=== PATIENT | female | born 1960 | race Caucasian/White ===

== ENCOUNTER → 2020-01-13 09:49 | Outpatient (CLI) | payer BC, SELFPAY ==
--- NOTE | ~2020-01-13 | MM_ITS ---
EXAMINATION: MM screening [facility] BI w jill HISTORY: Screening mammogram TECHNIQUE: Craniocaudal and mediolateral oblique 3-D tomosynthesis images were obtained and synthetic 2-D images were generated. CAD analysis was submitted and interpreted. COMPARISON: 12/06/2018, 09/02/2017, 08/13/2016 BREAST PARENCHYMAL COMPOSITION: There are scattered areas of fibroglandular density. FINDINGS: There is no evidence of suspicious mass, calcification, or architectural distortion to sugg est malignancy in either breast. There has been no suspicious interval change. IMPRESSION: 1. No mammographic evidence of malignancy. 2. Recommend routine screening mammography in one year. BI-RADS Category 1: Negative Reviewed, dictated and finalized at location A.
== END ==
PROVIDERS: PCP Family Medicine; Visit Provider Physician Assistant
DX: Z12.31 Encounter for screening mammogram for malignant neoplasm of breast (principal)
CPT/HCPCS: 77063; 77067

== ENCOUNTER → 2021-05-19 11:25 | Outpatient (CLI) | payer OTHER, SELFPAY ==
--- NOTE | ~2021-05-19 | MM_ITS ---
EXAMINATION: MM screening [facility] BI w jill HISTORY: Screening mammogram TECHNIQUE: Craniocaudal and mediolateral oblique 3-D tomosynthesis images were obtained and synthetic 2-D images were generated. CAD analysis was submitted and interpreted. COMPARISON: 01/13/2020, 12/06/2018, 09/02/2017 BREAST PARENCHYMAL COMPOSITION: There are scattered areas of fibroglandular density. FINDINGS: There is no evidence of suspicious mass, calcification, or architectural distortion to sugg est malignancy in either breast. There has been no suspicious interval change. IMPRESSION: 1. No mammographic evidence of malignancy. 2. Recommend routine screening mammography in one year. BI-RADS Category 1: Negative Reviewed, dictated and finalized at location A.
== END ==
PROVIDERS: PCP Family Medicine; Visit Provider Family Medicine
DX: Z12.31 Encounter for screening mammogram for malignant neoplasm of breast (principal)
CPT/HCPCS: 77063; 77067

== ENCOUNTER → 2021-12-30 16:27 | Outpatient (CLI) | payer OTHER, SELFPAY ==
--- NOTE | ~2021-12-30 | XR_ITS ---
EXAMINATION: XR knee LT 3V DATE: 12/30/2021 17:04 INDICATION: Left knee pain TECHNIQUE: Three views of the left knee were obtained. COMPARISON: None. FINDINGS: Alignment is normal. No fracture or osteochondral lesion. There is mild tricompartmental os teoarthritis characterized by tiny marginal osteophytes. No joint effusion/synovitis. Soft tissues a re unremarkable. IMPRESSION: 1. No acute osseous abnormality. Reviewed, dictated and finalized at location A. ICIAN COMPENSATION ANALYST
--- NOTE | ~2021-12-30 | XR_ITS ---
EXAMINATION: XR hip LT min 2V INDICATION: Left hip pain TECHNIQUE: Two views of the left hip are obtained. COMPARISON: None available FINDINGS: Bone alignment is normal. There is no fracture. The soft tissues are normal. IMPRESSION: 1. No acute osseous abnormality. Reviewed, dictated and finalized at location A. [employer]
--- NOTE | ~2021-12-30 | XR_ITS ---
EXAMINATION: XR ribs LT 2V w CXR 2V INDICATION: Left rib pain TECHNIQUE: A frontal view of the chest and 3 views of the left ribs were obtained. COMPARISON: None. FINDINGS: There is mild atelectasis. No pleural effusion or pneumothorax is identified. The cardiomed iastinal silhouette is normal. No displaced rib fracture is identified. IMPRESSION: 1. Mild atelectasis of the lung bases. 2. No displaced rib fracture identified. Reviewed, dictated and finalized at location A. REMOVER
== END ==
PROVIDERS: PCP Family Medicine; Visit Provider Family Medicine
DX: M25.559 Pain in unspecified hip (principal); R07.81 Pleurodynia; M25.569 Pain in unspecified knee; R91.8 Other nonspecific abnormal finding of lung field
CPT/HCPCS: 71046; 71100; 73502; 73562

== ENCOUNTER → 2022-02-02 11:04 | Outpatient (CLI) | payer OTHER, SELFPAY ==
--- NOTE | ~2022-02-02 | DEXA_ITS ---
Bone Density Report Name: CHERRY COATS Age: 61 Sex: Female Ethnicity: White Date of : 1960 Indication: postmenopausal; screening for osteoporosis; height loss; Referring Provider: SANDRA LONG Study: Bone densitometry was performed. Exam Date: February 02, 2022 Accession number: [id number] Bone Density: Region BMD T-score Z-score Classification AP Spine (L1-L4) 1.175 1.2 2.7 Normal Femoral Neck (Left) 1.038 1.7 3.0 Normal Total Hip (Left) 1.237 2.4 3.4 Normal Femoral Neck (Right) 1.048 1.8 3.1 Normal Total Hip (Right) 1.216 2.2 3.3 Normal Total Hip Mean 1.227 2.3 3.4 Normal World Health Organization criteria for BMD impression classify patients as: Normal (T-score at or above -1.0), Osteopenia (T-score between -1.0 and -2.5), or Osteoporosis (T-score at or below -2.5). 10-year Fracture Risk: FRAX not reported because: All T-scores for Spine Total, Hip Total, Femoral Neck at or above -1.0 Clinical Information Provided by Patient: Has used the following medications: Vitamin D, LEVOTHYROXINE Patient maximum height was 66.0 Menopause Age: 49 Drinks caffeinated beverages Onset of menses at age 12 Number of children 0 Impression: The patient has normal bone mass. Discussion: LOW RISK OF FRACTURE; BONE DENSITY IS WELL ABOVE THE MINIMUM DESIRABLE LEVEL AND ABOVE AVERAGE FOR AGE AND SEX AT ALL SKELETAL SITES TESTED. This person's bone density is above expected limits for age and sex. This is rarely clinically significant, but should be pursued if there are significant musculoskeletal complaints. The patient should follow a healthful lifestyle (good nutrition with adequate calcium and vitamin D, and appropriate weight-bearing exercise). Follow-Up: Consider repeating this study in 5 years or sooner if there is some new clinical indication. Reported by: [facility] on 02/02/2022 11:45:00 AM. Reviewed, dictated and finalized at location ASinan VALLECILLO
== END ==
PROVIDERS: Visit Provider Family Medicine
DX: Z78.0 Asymptomatic menopausal state (principal)
CPT/HCPCS: 77080

== ENCOUNTER 2022-11-09 14:21 | Emergency (ER) | payer OTHER, SELFPAY ==
[2022-11-09 16:00] VITALS: BP 153/89; PULSE 77; RESP 14; TEMP 36.2; O2SAT 100
--- NOTE | 2022-11-09 16:12 | ED.URI ---
HPI - URI/Sore Throat General Chief Complaint: Upper Respiratory Infection Stated Complaint: Cough/Wheezing Time Seen by Provider: 11/09/22 16:12 Source: patient, RN notes reviewed and old records reviewed Mode of arrival: ambulatory Limitations: no limitations History of Present Illness HPI Narrative: 61 year presents to the [facility] with complaints of cough, wheezing for 2 weeks. Had COVID a couple months ago and states she got over but for the last 2 weeks has increased cough, wheezing without chest pain or shortness of breath. States that she has been through multiple packages of Mucinex with minimal relief. Per medical record has been treated with cefdinir in the past. Patient denies any issues with that medication. Related Data Home Medications Medication Instructions Recorded Confirmed cetirizine 10 mg tablet (Zyrtec) 10 mg PO DAILY 11/23/19 11/09/22 Allergies Allergy/AdvReac Type Severity Reaction Status Date / Time erythromycin base Allergy Intermediate Other Verified 11/09/22 16:13 bee pollen Allergy Unknown Unknown Verified 11/09/22 15:53 chocolate flavor Allergy Unknown Unknown Verified 11/09/22 15:53 Penicillins Allergy Unknown Unknown Verified 11/09/22 15:53 pepper (genus Capsicum) Allergy Unknown Unknown Verified 11/09/22 15:53 tetracycline Allergy Unknown Unknown Verified 11/09/22 15:53 Review of Systems Review of Systems: All systems reviewed & are unremarkable except as noted in HPI and below Constitutional: Constitutional: Reports no additional constitutional complaints Eyes: Eyes: Reports no additional eye complaints ENT: Reports system reviewed and no additional complaints, except as documented Cardiovascular: Cardiovascular: Reports no additional cardiovascular complaints, Denies chest pain and Denies dyspnea Respiratory: Respiratory: Reports as per HPI, Denies chest congestion, Reports cough, Denies dyspnea and Reports wheezing Gastrointestinal: Gastrointestinal: Reports no additional gastrointestinal complaints, Denies abdominal pain, Denies nausea and Denies vomiting Musculoskeletal: Musculoskeletal: Reports no additional musculoskeletal complaints Integumentary/Breasts: Skin/Breast: Reports system reviewed and no additional complaints, except as docu Neurologic: Reports system reviewed and no additional complaints, except as documented Psychiatric: Psychiatric: Reports no additional psychiatric complaints Allergic/Immunologic: Allergic/Immunologic: Reports no additional allergic/immunologic complaints PMFSH Past Medical History Medical History Calcaneal spur of right foot Chronic renal insufficiency, stage II (mild) Colon cancer screening (~2019) negative cologuard HLD (hyperlipidemia) Hypertension Hypothyroidism Surgical History Surgical History Hx of tonsillectomy Family History Family History Father Hypertension Grandparent Hypertension Mother Hypertension Sibling Hypertension Family history of elevated blood lipids Social History Social History Smoking status: Never smoker Second hand tobacco smoke exposure: No Alcohol intake: never Substance use: never Substance use type: does not use Comments At the time of my signature, I reviewed and agree with the nursing past medical, surgical, social, and family history. There is no relevant family history pertinent to the patient complaint. Exam Const: General: cooperative, healthy appearing, comfortable, no acute distress, well developed, alert and well nourished Nutritional Appearance: well nourished and obese Orientation/consciousness: patient oriented x3 Limitations: no limitations HENMT: Head: normal to inspection Ears: hearing grossly normal bilaterally and external ears nor
== END 2022-11-09 16:32 | disposition home or self-care (01) ==
PROVIDERS: Emergency Provider Nurse Practitioner; PCP Family Medicine
DX: J40 Bronchitis, not specified as acute or chronic (principal); I12.9 Hypertensive chronic kidney disease with stage 1 through stage 4 chronic kidney disease, or unspecified chronic kidney disease; N18.2 Chronic kidney disease, stage 2 (mild); E78.5 Hyperlipidemia, unspecified; E03.9 Hypothyroidism, unspecified; Z86.16 Personal history of COVID-19
CPT/HCPCS: 99213; G0463

== ENCOUNTER 2023-03-03 08:36 | Emergency (ER) | payer OTHER, SELFPAY ==
--- NOTE | ~2023-03-03 | CT_ITS ---
EXAMINATION: CT brain wo con INDICATION: Head injury COMPARISON: None TECHNIQUE: Standard unenhanced head CT. The dose-length product (DLP) was 605.33 mGy-cm. The mA was a djusted according to patient size. Iterative reconstruction technique was employed. FINDINGS: There is no intracranial hemorrhage, acute infarction, or abnormal mass lesion. The ventric les are normal. There is no abnormal mass effect or midline shift. The thomson-white matter differentiat ion is normal. The basal cisterns are patent. The orbits are normal. There is mild mucosal thickening of the paranasal sinuses. IMPRESSION: 1. No acute intracranial abnormality. Reviewed, dictated and finalized at location B.
--- NOTE | ~2023-03-03 | CT_ITS ---
EXAMINATION: CT facial & cervical spine wo DATE: 03/03/2023 09:50 INDICATION: Head injury TECHNIQUE: Computed tomography (CT) of the maxillofacial region and cervical spine was performed with out intravenous contrast. The dose-length product (DLP) was 429.26 mGy-cm. Automated exposure control and iterative reconstruction technique were employed. COMPARISON: None FINDINGS: MAXILLOFACIAL CT: There is minimal opacification of the ethmoidal air cells and right maxillary sinus. No facial fractu re is identified. The globes and orbits are normal. The soft tissues are unremarkable. CERVICAL SPINE CT: Bone alignment is normal. There is no fracture. The vertebral body heights are normal. There is mild loss of intervertebral disc space height at C5-6 and C6-7. The odontoid process is intact. IMPRESSION: 1. No facial fracture identified. 2. Mild cervical spondylosis without acute findings. Reviewed, dictated and finalized at location B.
[2023-03-03 08:51] VITALS: BP 170/108; PULSE 66; RESP 18; TEMP 36.7; O2SAT 99
--- NOTE | 2023-03-03 09:24 | ED.HEATRA ---
HPI - Head Injury General Chief complaint: Head Injury Stated complaint: head injury on Wednesday Time Seen by Provider: 03/03/23 09:06 History of Present Illness HPI Narrative: 62-year-old female hypothyroidism, hypertension and dyslipidemia presents to the emergency room for evaluation of injury sustained in a mechanical ground-level fall past Wednesday. Patient states that she was carrying a banana box, when she tripped and fell, striking the corner of the box to the right side of her face. Patient denies any LOC or altered mental status. Endorses ringing in her years, and seeing lines in her visual bravo. Patient denies lightheadedness. Denies headaches. No other injuries. Patient is not anticoagulated. Related Data Home Medications Medication Instructions Recorded Confirmed cetirizine 10 mg tablet (Zyrtec) 10 mg PO DAILY 11/23/19 12/17/22 Allergies Allergy/AdvReac Type Severity Reaction Status Date / Time erythromycin base Allergy Intermediate Other Verified 03/03/23 08:50 bee pollen Allergy Unknown Unknown Verified 03/03/23 08:50 chocolate flavor Allergy Unknown Unknown Verified 03/03/23 08:50 Penicillins Allergy Unknown Unknown Verified 03/03/23 08:50 pepper (genus Capsicum) Allergy Unknown Unknown Verified 03/03/23 08:50 tetracycline Allergy Unknown Unknown Verified 03/03/23 08:50 Review of Systems Review of Systems: CONSTITUTIONAL: Denies fever, chills, or sweats. EYES: Denies visual changes, redness, or discharge. ENT: Denies rhinorrhea, congestion, sore throat, or otalgia. CARDIOVASCULAR: Denies chest pain, palpitations, or edema. RESPIRATORY: Denies cough or dyspnea. GASTROINTESTINAL: Denies abdominal pain, nausea, vomiting, or diarrhea. GENITOURINARY: Denies dysuria or hematuria. SKIN: Denies rash or itching. MUSCULOSKELETAL: Denies back pain, joint pain, or myalgia. NEUROLOGIC: Denies headache, numbness, dizziness, or weakness. PSYCHIATRIC: Denies anxiety or depression. [facility] Past Medical History Medical History Calcaneal spur of right foot Chronic renal insufficiency, stage II (mild) Colon cancer screening (~2019) negative cologuard HLD (hyperlipidemia) Hypertension Hypothyroidism Surgical History Surgical History Hx of tonsillectomy Family History Family History Father Hypertension Grandparent Hypertension Mother Hypertension Sibling Hypertension Family history of elevated blood lipids Social History Social History Smoking status: Never smoker Second hand tobacco smoke exposure: No Alcohol intake: never Substance use: never Substance use type: does not use Exam Narrative: GENERAL: Well-appearing, well-nourished, no physical limitations, and in no acute distress. HEAD: Normocephalic, ecchymosis and tenderness over the lateral aspect of the right brow. Positive TMJ bilaterally. EYES: Conjunctivae normal, PERRLA and EOMI. ENT: External nose normal, Nares clear, no rhinorrhea or epistaxis. Mucous membranes moist. Oropharynx without tonsillar hypertrophy exudate or other lesions. External ears normal, bilateral TMs normal bilaterally NECK: Supple. CHEST: Clear to auscultation. No respiratory distress. No wheezes rales or rhonchi. HEART: Regular rate and rhythm. No murmur heard. Normal peripheral pulses. BACK:No cervical tenderness, step-offs, bony abnormality; FROM EXTREMITIES: Normal range of motion. No edema. No clubbing or cyanosis SKIN: Warm, dry, no rash. No noted wounds NEURO: No focal deficits. Alert and oriented x3. MAEW. CN's II-XI intact bilaterally, normal gait PSYCH: Cooperative. Normal mood and affect. Course Vital Signs Vital signs: Vital Signs Temperature 36.7 C 03/03/23 08:51 Pulse Rate 66 03/03/23 08:51
[2023-03-03 10:08] VITALS: BP 183/103; O2SAT 100
[2023-03-03 10:09] VITALS: O2SAT 99
[2023-03-03 10:15] VITALS: O2SAT 99
[2023-03-03 10:16] VITALS: BP 183/99; PULSE 61; RESP 20; O2SAT 100
[2023-03-03 10:41] VITALS: BP 183/100; PULSE 60; RESP 18; O2SAT 98
== END 2023-03-03 10:47 | disposition home or self-care (01) ==
PROVIDERS: Emergency Provider Nurse Practitioner Family; PCP Family Medicine
DX: S09.90XA Unspecified injury of head, initial encounter (principal); I12.9 Hypertensive chronic kidney disease with stage 1 through stage 4 chronic kidney disease, or unspecified chronic kidney disease; N18.2 Chronic kidney disease, stage 2 (mild); E78.5 Hyperlipidemia, unspecified; E03.9 Hypothyroidism, unspecified; W01.198A Fall on same level from slipping, tripping and stumbling with subsequent striking against other object, initial encounter
CPT/HCPCS: 70450; 70486; 72125; 99284

== ENCOUNTER → 2023-04-23 09:56 | Outpatient (CLI) | payer OTHER, SELFPAY ==
--- NOTE | ~2023-04-23 | CT_ITS ---
EXAMINATION: CT abdomen pelvis wo con DATE: 04/23/2023 10:13 INDICATION: Hematuria TECHNIQUE: Computed tomography (CT) of the abdomen and pelvis was performed without intravenous contr ast. The dose-length product was 975.02 mGy-cm. Automated exposure control and iterative reconstruction technique were employed. COMPARISON: None. FINDINGS: Lung bases are unremarkable. Heart size normal. No significant pleural or pericardial effus ion. The liver, spleen, pancreas, adrenal glands and kidneys are unremarkable. There are gallstones. Nonobstructive bowel gas pattern. No free air or free fluid. No acute osseous abnormality. Moderate l umbar spondylosis. IMPRESSION: 1. No acute abdominal abnormality. 2: Cholelithiasis. Reviewed, dictated and finalized at location A.
== END ==
PROVIDERS: PCP Family Medicine; Visit Provider Physician Assistant Medical
DX: R31.9 Hematuria, unspecified (principal); K80.20 Calculus of gallbladder without cholecystitis without obstruction
CPT/HCPCS: 74176

== ENCOUNTER 2023-04-30 08:16 | Outpatient (CLI) | payer OTHER, SELFPAY ==
--- NOTE | 2023-04-30 08:41 | ECG_ITS ---
Measurements Intervals [place] Rate: 68 P: 54 MD: 184 QRS: -24 QRSD: 94 T: 20 QT: 318 QTc: 339 Interpretive Statements SINUS RHYTHM MODERATE VOLTAGE CRITERIA FOR LVH, CONSIDER NORMAL VARIANT [MEETS CRITERIA IN ONE OF: R(aVL), S(V1), R(V5), R(V5/V6)+S(V1)] POOR R-WAVE PROGRESSION NONSPECIFIC T-WAVE ABNORMALITY ABNORMAL ECG NO PREVIOUS ECG AVAILABLE FOR COMPARISON Electronically Signed On 04-30-2023 16:10:52 CDT by Brigido Blue M.D.
== END 2023-04-30 08:17 | disposition home or self-care (01) ==
LOC: ANHCARD 08:18
PROVIDERS: PCP Family Medicine; Visit Provider Family Medicine
DX: I10 Essential (primary) hypertension (principal); R94.31 Abnormal electrocardiogram [ECG] [EKG]; Z01.818 Encounter for other preprocedural examination
CPT/HCPCS: 93005

== ENCOUNTER 2023-09-25 11:52 | Emergency (ER) | payer OTHER, SELFPAY ==
--- NOTE | ~2023-09-25 | XR_ITS ---
EXAMINATION: XR humerus LT DATE: 09/25/2023 13:31 INDICATION: Left humerus pain. TECHNIQUE: 2 views of left humerus were obtained. COMPARISON: None. FINDINGS: Bone alignment is normal. No fracture. Joint spaces are normal. IMPRESSION: 1. Normal left humerus. Reviewed, dictated and finalized at location A. X CLERK IMPRESSION: 1. Normal left humerus.
[2023-09-25 12:11] VITALS: BP 152/95; PULSE 69; RESP 16; TEMP 37.2; O2SAT 98
--- NOTE | 2023-09-25 13:09 | ED.GENADULT ---
HPI - General Adult General Chief complaint: Extremity Injury, Upper Stated complaint: left elbow injury History of Present Illness HPI narrative: 6-year-old female [facility] with complaints of right elbow pain. Patient states she was bowling last night when she felt a pop in the soft tissue of the lateral portion of the left elbow. Patient reports that there is some swelling and discomfort but is still able to move the elbow without difficulty. Patient states she is unable to pick anything up with that arm because it feels like it is pulling and hurting too much. Patient has a brace that she put on at home but thinks she got the size too small because it was squeezing too tight on her arm. Patient has not taken any ibuprofen or Tylenol for discomfort. Related Data Home Medications Medication Instructions Recorded Confirmed cetirizine 10 mg tablet (Zyrtec) 10 mg PO DAILY 11/23/19 07/28/23 cholecalciferol (vitamin D3) 250 250 mcg PO DAILY 03/08/23 07/28/23 mcg (10,000 unit) capsule mecobalamin (vitamin B12) 500 mcg mcg PO 03/08/23 07/28/23 chewable tablet albuterol sulfate 0.63 mg/3 mL 0.63 mg inhalation Q4-6H PRN 04/19/23 07/28/23 solution for nebulization tobramycin 0.3 %-dexamethasone 0.1 drp 09/25/23 % eye drops,suspension Allergies Allergy/AdvReac Type Severity Reaction Status Date / Time erythromycin base Allergy Intermediate Other Verified 09/25/23 12:06 bee pollen Allergy Unknown Unknown Verified 09/25/23 12:06 chocolate flavor Allergy Unknown Unknown Verified 09/25/23 12:06 Penicillins Allergy Unknown Unknown Verified 09/25/23 12:06 pepper (genus Capsicum) Allergy Unknown Unknown Verified 09/25/23 12:06 tetracycline Allergy Unknown Unknown Verified 09/25/23 12:06 Review of Systems Review of Systems: CONSTITUTIONAL: Denies fever, chills, or sweats. EYES: Denies visual changes, redness, or discharge. ENT: Denies rhinorrhea, congestion, sore throat, or otalgia. CARDIOVASCULAR: Denies chest pain, palpitations, or edema. RESPIRATORY: Denies cough or dyspnea. GASTROINTESTINAL: Denies abdominal pain, nausea, vomiting, or diarrhea. GENITOURINARY: Denies dysuria or hematuria. SKIN: Denies rash or itching. MUSCULOSKELETAL: Denies back pain, positive joint and soft tissue pain of the left elbow, and denies myalgia. Patient is unable to pick anything up with the left arm. NEUROLOGIC: Denies headache, numbness, or weakness. PSYCHIATRIC: Denies anxiety or depression. [facility] Past Medical History Medical History Calcaneal spur of right foot Chronic renal insufficiency, stage II (mild) Colon cancer screening (~2019) negative cologuard HLD (hyperlipidemia) Hypertension Hypothyroidism Surgical History Surgical History Hx of tonsillectomy Family History Family History Father Hypertension Grandparent Hypertension Mother Hypertension Sibling Hypertension Family history of elevated blood lipids Social History Social History Smoking status: Never smoker Second hand tobacco smoke exposure: No Alcohol intake: never Substance use: never Substance use type: does not use Lack of Transportation: No Lack of Food: Never True Current Housing: I Have Housing Concerned About Future Housing: No Difficulty Paying Gas/Electric Bills: No Difficulty Paying for Meds: No Currently Unemployed: No Education: High School Diploma/GED Difficulty w/ Childcare or Family Care: No Gender identity (if verbalized by the patient): Female Spiritual care concerns: No Agree to blood products: Yes Exam Narrative: GENERAL: Well-appearing, well-nourished, and in no acute distress. HEAD: Normocephalic, atraumatic. EYES: PERRLA and EOMI. ENT:
== END 2023-09-25 13:50 | disposition home or self-care (01) ==
PROVIDERS: Emergency Provider Nurse Practitioner Family; PCP Family Medicine
DX: M25.522 Pain in left elbow (principal); I12.9 Hypertensive chronic kidney disease with stage 1 through stage 4 chronic kidney disease, or unspecified chronic kidney disease; N18.2 Chronic kidney disease, stage 2 (mild); E78.5 Hyperlipidemia, unspecified; E03.9 Hypothyroidism, unspecified
CPT/HCPCS: 73060; 99213; G0463

== ENCOUNTER 2023-11-05 08:43 | Outpatient (CLI) | payer OTHER, SELFPAY ==
--- NOTE | 2023-11-05 08:52 | ECHO_ITS ---
Patient Info Name: Alize Carey Age: 62 years : 1960 Gender: Female Ht: 66 in Wt: 195 lbs BSA: 2.06 m2 HR: 64 bpm BP: 157 / 78 mmHg Heart Rhythm: Sinus Rhythm Technical Quality: Fair Exam Date: 11/05/2023 9:03 AM Exam Location: Echo Lab Patient Status: Outpatient Admit Date: 11/05/2023 Staff Ordering Physician: Mami Zapien PA-C Fairground Operator: Alejandra Camarillo RDCS Attending Provider: Mami Zapien PA-C Referring Physician: Curry BUCKNER; Exam Type: CA echo doppler color flow Study Info Indications - edema Complete two-dimensional, color flow and Doppler transthoracic echocardiogram is performed. Summary 1. Complete two-dimensional, color flow and Doppler transthoracic echocardiogram is performed. 2. Left ventricular chamber dimension is normal. 3. Left ventricular systolic function is normal, estimated at 60-65%. 4. The left ventricular diastolic function is grade I diastolic dysfunction. 5. E/e' 8 is minimally elevated. 6. Left atrial chamber dimension is mildly enlarged. 7. There is mild aortic valve sclerosis. 8. The mitral valve has mildly calcified annulus. 9. There is trace tricuspid valve regurgitation. 10. No pulmonary hypertension, estimated pulmonary arterial systolic pressure is 32 mmHg. Left Ventricle E/e' 8 is minimally elevated. Left ventricular chamber dimension is normal. Left ventricular systolic function is normal, estimated at 60-65%. The left ventricular diastolic function is grade I diastolic dysfunction. Right Ventricle Right ventricular chamber dimension is normal. Right ventricular systolic function is normal. Left Atria Left atrial chamber dimension is mildly enlarged. Right Atria Right atrial chamber dimension is normal. Aortic Valve The aortic valve is trileaflet. There is mild aortic valve sclerosis. There is no aortic valve stenosis. There is no aortic valve regurgitation. Pulmonic Valve There is no pulmonic regurgitation. Mitral Valve The mitral valve has mildly calcified annulus. There is no mitral valve stenosis. There is no mitral valve regurgitation. Tricuspid Valve There is trace tricuspid valve regurgitation. No pulmonary hypertension, estimated pulmonary arterial systolic pressure is 32 mmHg. Pericardium/Pleural There is no pericardial effusion. Inferior Vena Cava Normal inferior vena cava with >50% collapse upon inspiration consistent with normal right atrial pressure, 5 mmHg. Aorta The aortic root size at the sinus of Valsalva is normal. Left Ventricular Outflow Tract Name Value Normal LVOT 2D LVOT Diameter 2.0 cm LVOT Doppler LVOT Peak Gradient 5 mmHg LVOT Mean Gradient 3 mmHg LVOT VTI 23 cm LVOT VTI/AV VTI Ratio 0.8 LVOT Stroke Volume 69 ml LVOT CO 14.2 l/min LVOT CI 6.9 l/min/m2 Pulmonic Valve Name Value Normal
== END 2023-11-05 08:44 | disposition home or self-care (01) ==
PROVIDERS: PCP Family Medicine; Visit Provider Physician Assistant
DX: R60.9 Edema, unspecified (principal)
CPT/HCPCS: 93306

== ENCOUNTER → 2023-11-06 08:46 | Outpatient (CLI) | payer OTHER, SELFPAY ==
--- NOTE | ~2023-11-06 | MM_ITS ---
EXAMINATION: MM screening [facility] BI w jill HISTORY: Screening mammogram TECHNIQUE: Craniocaudal and mediolateral oblique 3-D tomosynthesis images were obtained and synthetic 2-D images were generated. CAD analysis was submitted and interpreted. COMPARISON: 05/19/2021, 01/13/2020 BREAST PARENCHYMAL COMPOSITION: The breasts are almost entirely fatty. FINDINGS: No suspicious mass, calcification, or architectural distortion are identified in either case ast to suggest malignancy. There has been no suspicious interval change. IMPRESSION: 1. No mammographic evidence of malignancy. 2. Recommend routine screening mammography in one year. BI-RADS Category 1: Negative Reviewed, dictated and finalized at location A. AL SURGERY DOCTOR
== END ==
PROVIDERS: PCP Physician Assistant; Visit Provider Physician Assistant
DX: Z12.31 Encounter for screening mammogram for malignant neoplasm of breast (principal)
CPT/HCPCS: 77063; 77067

== ENCOUNTER 2023-12-23 15:31 | Emergency (ER) | payer OTHER, SELFPAY ==
[2023-12-23 15:44] VITALS: BP 157/79; PULSE 64; RESP 16; TEMP 36.8; O2SAT 100
--- NOTE | 2023-12-23 16:40 | ED.GENADULT ---
HPI - General Adult General Chief complaint: Unspecified Stated complaint: fatigue Time Seen by Provider: 12/23/23 16:29 Source: patient and RN notes reviewed Mode of arrival: ambulatory Limitations: no limitations History of Present Illness HPI narrative: Patient presents today complaining of fatigue and exhaustion. She was just out of work for 6 weeks after and eye surgery and returned very recently and is required to walk 3-4 miles per day at work after being mostly immobile at home after her surgical procedure. She called into work today because she was exhausted from her recent shift at the [employer] and she was told she needed a work note to excuse her today. Related Data Home Medications Medication Instructions Recorded Confirmed cetirizine 10 mg tablet (Zyrtec) 10 mg PO DAILY 11/23/19 12/23/23 cholecalciferol (vitamin D3) 250 250 mcg PO DAILY 03/08/23 12/23/23 mcg (10,000 unit) capsule mecobalamin (vitamin B12) 500 mcg 500 mcg PO DIRECTED 03/08/23 12/23/23 chewable tablet albuterol sulfate 0.63 mg/3 mL 0.63 mg inhalation Q4-6H PRN 04/19/23 12/23/23 solution for nebulization Shortness Of Breath Or Wheezing Allergies Allergy/AdvReac Type Severity Reaction Status Date / Time erythromycin base Allergy Intermediate Other Verified 10/11/23 15:49 bee pollen Allergy Unknown Unknown Verified 10/11/23 15:49 chocolate flavor Allergy Unknown Unknown Verified 10/11/23 15:49 Penicillins Allergy Unknown Unknown Verified 10/11/23 15:49 pepper (genus Capsicum) Allergy Unknown Unknown Verified 10/11/23 15:49 tetracycline Allergy Unknown Unknown Verified 10/11/23 15:49 Review of Systems Review of Systems: CONSTITUTIONAL: Denies body aches, fever, chills, or sweats.+ fatigue EYES: Denies visual changes, redness, or discharge. ENT: Denies rhinorrhea, congestion, sore throat, or otalgia. CARDIOVASCULAR: Denies chest pain, palpitations, or edema. RESPIRATORY: Denies cough or dyspnea. GASTROINTESTINAL: Denies abdominal pain, nausea, vomiting, or diarrhea. GENITOURINARY: Denies dysuria or hematuria. SKIN: Denies rash, itching, or wounds. MUSCULOSKELETAL: Denies back pain, joint pain, or myalgia. NEUROLOGIC: Denies headache, numbness, tingling, or weakness. PSYCH: Denies depression or anxiety. [facility] Past Medical History Medical History Calcaneal spur of right foot Chronic renal insufficiency, stage II (mild) Colon cancer screening (~2019) negative cologuard HLD (hyperlipidemia) Hypertension Hypothyroidism Surgical History Surgical History Hx of tonsillectomy Family History Family History Father Hypertension Grandparent Hypertension Mother Hypertension Sibling Hypertension Family history of elevated blood lipids Social History Social History Smoking status: Never smoker Second hand tobacco smoke exposure: No Alcohol intake: never Substance use: never Substance use type: does not use Lack of Transportation: No Lack of Food: Never True Current Housing: I Have Housing Concerned About Future Housing: No Difficulty Paying Gas/Electric Bills: No Difficulty Paying for Meds: No Currently Unemployed: No Education: High School Diploma/GED Difficulty w/ Childcare or Family Care: No Gender identity (if verbalized by the patient): Female Spiritual care concerns: No Agree to blood products: Yes Comments At time of signature, I have reviewed and agree with nursing past medical, surgical, social and family history unless otherwise noted. Please see nursing chart for further information. There is no relevant family history pertinent to the presenting complaint Exam Narrative: GENERAL: Well-appearing, well-nourished, and in no acute distr
== END 2023-12-23 16:50 | disposition home or self-care (01) ==
PROVIDERS: Emergency Provider Nurse Practitioner; PCP Physician Assistant
DX: T73.3XXA Exhaustion due to excessive exertion, initial encounter (principal); X50.3XXA Overexertion from repetitive movements, initial encounter; I12.9 Hypertensive chronic kidney disease with stage 1 through stage 4 chronic kidney disease, or unspecified chronic kidney disease; N18.2 Chronic kidney disease, stage 2 (mild); E78.5 Hyperlipidemia, unspecified; E03.9 Hypothyroidism, unspecified
CPT/HCPCS: 99211; G0463

== ENCOUNTER 2024-01-11 15:22 | Outpatient (CLI) | payer OTHER, SELFPAY ==
[2024-01-11 16:22] LABS: Alanine Aminotransferase 19 U/L (6-35); Albumin Level 4.3 g/dL (3.5-5.1); Alkaline Phosphatase 93 U/L (38-126); Anion Gap 6 mmol/L (8-16); Aspartate Amino Transferase 27 U/L (14-36); Bilirubin,Total 0.6 mg/dL (0.2-1.3); Blood Urea Nitrogen 24 mg/dL (7-17); Calcium 9.4 mg/dL (8.4-10.2); Carbon Dioxide 31 mmol/L (22-30); Chloride 103 mmol/L (98-107); Cholesterol 216 mg/dL (0-200); Estimated Glomerular Filt Rate 50; Glucose 90 mg/dL (65-110); HDL Direct 54 mg/dL; Potassium 3.7 mmol/L (3.4-5.0); Sodium 140 mmol/L (137-145); Triglycerides 151 mg/dL (<150)
[2024-01-11 16:35] LABS: LDL Cholesterol Direct 118 mg/dL
[2024-01-11 18:48] LABS: Free T4 Free Thyroxine 1.55 ng/mL (0.78-2.19)
== END 2024-01-11 15:23 | disposition home or self-care (01) ==
LOC: ANHLAB 15:23
PROVIDERS: PCP Physician Assistant; Visit Provider Physician Assistant Medical
DX: E03.9 Hypothyroidism, unspecified (principal); E78.2 Mixed hyperlipidemia; F41.9 Anxiety disorder, unspecified
CPT/HCPCS: 36415; 80053; 80061; 84439; 84443

== ENCOUNTER 2024-03-03 08:05 | Outpatient (CLI) | payer OTHER, SELFPAY | END 2024-03-03 08:06 | disposition home or self-care (01) | LOC: ANHAUDIO 08:06 | PROVIDERS: PCP Family Medicine; Visit Provider Physician Assistant | DX: H93.19 Tinnitus, unspecified ear (principal); H90.42 Sensorineural hearing loss, unilateral, left ear, with unrestricted hearing on the contralateral side | CPT/HCPCS: 92557; 92567 ==

== ENCOUNTER 2024-05-05 11:01 | Emergency (ER) | payer OTHER, SELFPAY ==
--- NOTE | ~2024-05-05 | XR_ITS ---
EXAMINATION: [id number] DATE: 05/05/2024 11:53 INDICATION: Right chest pain. Injury. TECHNIQUE: A frontal view of the chest and 2 views on 3 radiographs of the right ribs were obtained. COMPARISON: None. FINDINGS: There is no pneumonia, pleural effusion, or pneumothorax. The heart size is normal. There a re prominent pericardial fat pads. IMPRESSION: 1. No rib fracture. Reviewed, dictated and finalized at location A. IMPRESSION: 1. No rib fracture.
[2024-05-05 11:14] VITALS: BP 137/84; PULSE 88; RESP 16; TEMP 37.3; O2SAT 99
--- NOTE | 2024-05-05 11:30 | ED.URI ---
HPI - URI/Sore Throat General Chief Complaint: Upper Respiratory Infection Stated Complaint: sore throat,bodyaches,COVID exp,r side back pain Time Seen by Provider: 05/05/24 11:30 Source: patient Mode of arrival: ambulatory Limitations: no limitations History of Present Illness HPI Narrative: 63 yo F presents with c/o nasal congestoin, runny nose, PND, sore throat, fatigue for 3 days. Missed work today due to sympptoms. Was exposed to covid. Did covid test last night and was negative. Requesting strep test. Also reports R rib pain for a few wks. States her dog jumped on her. Wants to make sure no fx. Denies CP/SOB. All systems reviewed and negative except as noted above. Related Data Home Medications Medication Instructions Recorded Confirmed cetirizine 10 mg tablet (Zyrtec) 10 mg PO DAILY 11/23/19 05/05/24 cholecalciferol (vitamin D3) 250 250 mcg PO DAILY 03/08/23 05/05/24 mcg (10,000 unit) capsule mecobalamin (vitamin B12) 500 mcg 500 mcg PO DIRECTED 03/08/23 05/05/24 chewable tablet albuterol sulfate 0.63 mg/3 mL 0.63 mg inhalation Q4-6H PRN 04/19/23 05/05/24 solution for nebulization Shortness Of Breath Or Wheezing Allergies Allergy/AdvReac Type Severity Reaction Status Date / Time erythromycin base Allergy Intermediate Other Verified 05/05/24 11:06 bee pollen Allergy Unknown Unknown Verified 05/05/24 11:06 chocolate flavor Allergy Unknown Unknown Verified 05/05/24 11:06 Penicillins Allergy Unknown Unknown Verified 05/05/24 11:06 pepper (genus Capsicum) Allergy Unknown Unknown Verified 05/05/24 11:06 tetracycline Allergy Unknown Unknown Verified 05/05/24 11:06 Review of Systems Review of Systems: CONSTITUTIONAL: Denies fever, chills, or sweats. reports fatigue. EYES: Denies visual changes, redness, or discharge. ENT: Reports rhinorrhea, congestion, sore throat. Denies otalgia. CARDIOVASCULAR: Denies chest pain, palpitations, or edema. RESPIRATORY: Denies cough or dyspnea. GASTROINTESTINAL: Denies abdominal pain, nausea, vomiting, or diarrhea. GENITOURINARY: Denies dysuria or hematuria. SKIN: Denies rash or itching. MUSCULOSKELETAL: Denies back pain, joint pain, or myalgia. Reports right rib pain. NEUROLOGIC: Denies headache, numbness, or weakness. PSYCHIATRIC: Denies anxiety or depression. All other systems reviewed are negative, except as documented in HPI. [facility] Past Medical History Medical History Calcaneal spur of right foot Chronic renal insufficiency, stage II (mild) Colon cancer screening (~2019) negative cologuard HLD (hyperlipidemia) Hypertension Hypothyroidism Surgical History Surgical History Hx of tonsillectomy Family History Family History Father Hypertension Grandparent Hypertension Mother Hypertension Sibling Hypertension Family history of elevated blood lipids Social History Social History Smoking status: Never smoker Second hand tobacco smoke exposure: No Alcohol intake: never Substance use: never Substance use type: does not use Lack of Transportation: No Lack of Food: Never True Current Housing: I Have Housing Concerned About Future Housing: No Difficulty Paying Gas/Electric Bills: No Difficulty Paying for Meds: No Currently Unemployed: No Education: High School Diploma/GED Difficulty w/ Childcare or Family Care: No Gender identity (if verbalized by the patient): Female Spiritual care concerns: No Agree to blood products: Yes Comments At time of signature, agree with nursing past medical, surgical, social and family history. There is no relevant family history pertinent to the presenting complaint. Exam Narrative: GENERAL: This is a well-nourished, well-developed patient, in no apparent
== END 2024-05-05 12:10 | disposition home or self-care (01) ==
PROVIDERS: Emergency Provider Nurse Practitioner Family; PCP Family Medicine
DX: J06.9 Acute upper respiratory infection, unspecified (principal); S20.211A Contusion of right front wall of thorax, initial encounter; W54.1XXA Struck by dog, initial encounter; I12.9 Hypertensive chronic kidney disease with stage 1 through stage 4 chronic kidney disease, or unspecified chronic kidney disease; N18.2 Chronic kidney disease, stage 2 (mild); E78.5 Hyperlipidemia, unspecified; E03.9 Hypothyroidism, unspecified
CPT/HCPCS: 71101; 87081; 87880; 99213; G0463

== ENCOUNTER 2024-08-04 14:52 | Emergency (ER) | payer OTHER, SELFPAY ==
[2024-08-04 15:04] VITALS: BP 152/75; PULSE 76; RESP 20; TEMP 37.3; O2SAT 98
--- NOTE | 2024-08-04 15:04 | ED.EXTPRO ---
HPI - Extremity Problem General Chief complaint: Extremity Problem,Nontraumatic Stated complaint: LT Foot Toe Pain Time Seen by Provider: 08/04/24 15:04 Source: patient, RN notes reviewed and old records reviewed Mode of arrival: ambulatory Limitations: no limitations History of Present Illness HPI Narrative: Patient presents with exacerbation of chronic pain. She has a hammertoe to the left 2nd toe, has been seen by primary for this, has appointment to see Podiatry. She reports that she works for the [employer], she does a lot of climbing in and out of some ice. She reports that after working all week her pain to her foot and toe are nearly unbearable. She denies any recent injury or trauma. She voices no other concerns or complaints at this time. She has been taking Tylenol, but is unable to take NSAIDs due to kidney disease. Tylenol is not doing a good job of relieving her pain Related Data Home Medications Medication Instructions Recorded Confirmed cetirizine 10 mg tablet (Zyrtec) 10 mg PO DAILY 11/23/19 08/07/24 cholecalciferol (vitamin D3) 250 250 mcg PO DAILY 03/08/23 08/07/24 mcg (10,000 unit) capsule mecobalamin (vitamin B12) 500 mcg 500 mcg PO DIRECTED 03/08/23 08/07/24 chewable tablet albuterol sulfate 0.63 mg/3 mL 0.63 mg inhalation Q4-6H PRN 04/19/23 08/07/24 solution for nebulization Shortness Of Breath Or Wheezing Allergies Allergy/AdvReac Type Severity Reaction Status Date / Time erythromycin base Allergy Intermediate Other Verified 08/07/24 12:38 bee pollen Allergy Unknown Unknown Verified 08/07/24 12:38 chocolate flavor Allergy Unknown Unknown Verified 08/07/24 12:38 Penicillins Allergy Unknown Unknown Verified 08/07/24 12:38 pepper (genus Capsicum) Allergy Unknown Unknown Verified 08/07/24 12:38 tetracycline Allergy Unknown Unknown Verified 08/07/24 12:38 Review of Systems Review of Systems: All systems reviewed & are unremarkable except as noted in HPI and below Constitutional: Constitutional: Reports no additional constitutional complaints ENT: Reports system reviewed and no additional complaints, except as documented Cardiovascular: Cardiovascular: Reports no additional cardiovascular complaints Respiratory: Respiratory: Reports no additional respiratory complaints, Reports chest congestion, Reports cough and Reports wheezing Gastrointestinal: Gastrointestinal: Reports no additional gastrointestinal complaints Musculoskeletal: Musculoskeletal: Reports no additional musculoskeletal complaints, Reports as per HPI, Reports abnormal gait, Reports deformity and Reports arthralgias [facility] Past Medical History Medical History Calcaneal spur of right foot Chronic renal insufficiency, stage II (mild) Colon cancer screening (~2019) negative cologuard HLD (hyperlipidemia) Hypertension Hypothyroidism Surgical History Surgical History Hx of tonsillectomy Family History Family History Father Hypertension Grandparent Hypertension Mother Hypertension Sibling Hypertension Family history of elevated blood lipids Social History Social History Smoking status: Never smoker Second hand tobacco smoke exposure: No Alcohol intake: never Substance use: never Substance use type: does not use Lack of Transportation: No Lack of Food: Never True Current Housing: I Have Housing Concerned About Future Housing: No Difficulty Paying Gas/Electric Bills: No Difficulty Paying for Meds: No Currently Unemployed: No Education: High School Diploma/GED Difficulty w/ Childcare or Family Care: No Gender identity (if verbalized by the patient): Female Spiritual care concerns: No Agree to blood products: Yes Comments At the time of my signatu
== END 2024-08-04 15:25 | disposition home or self-care (01) ==
PROVIDERS: Emergency Provider Nurse Practitioner Family; PCP Family Medicine
DX: M20.42 Other hammer toe(s) (acquired), left foot (principal); I12.9 Hypertensive chronic kidney disease with stage 1 through stage 4 chronic kidney disease, or unspecified chronic kidney disease; N18.2 Chronic kidney disease, stage 2 (mild); E78.5 Hyperlipidemia, unspecified; E03.9 Hypothyroidism, unspecified
CPT/HCPCS: 99213; G0463

== ENCOUNTER 2024-08-07 11:57 | Emergency (ER) | payer OTHER, SELFPAY ==
--- NOTE | 2024-08-07 12:03 | ED.LOWEXIN ---
HPI - Extremity Injury (Lower) General Chief Complaint: Unspecified Stated Complaint: left foot injury Time Seen by Provider: 08/07/24 12:31 Source: patient and RN notes reviewed Mode of arrival: ambulatory Limitations: no limitations History of Present Illness HPI Narrative: 63-year-old female presents with concern for returning to work with restrictions after being seen for foot pain. She was seen 3 days ago and was given a work note with restrictions, however she works for the [employer] and they need much more specific information regarding her restrictions. 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 MD complaint: other (Foot pain) Related Data Home Medications Medication Instructions Recorded Confirmed cetirizine 10 mg tablet (Zyrtec) 10 mg PO DAILY 11/23/19 08/07/24 cholecalciferol (vitamin D3) 250 250 mcg PO DAILY 03/08/23 08/07/24 mcg (10,000 unit) capsule mecobalamin (vitamin B12) 500 mcg 500 mcg PO DIRECTED 03/08/23 08/07/24 chewable tablet albuterol sulfate 0.63 mg/3 mL 0.63 mg inhalation Q4-6H PRN 04/19/23 08/07/24 solution for nebulization Shortness Of Breath Or Wheezing Allergies Allergy/AdvReac Type Severity Reaction Status Date / Time erythromycin base Allergy Intermediate Other Verified 08/07/24 12:38 bee pollen Allergy Unknown Unknown Verified 08/07/24 12:38 chocolate flavor Allergy Unknown Unknown Verified 08/07/24 12:38 Penicillins Allergy Unknown Unknown Verified 08/07/24 12:38 pepper (genus Capsicum) Allergy Unknown Unknown Verified 08/07/24 12:38 tetracycline Allergy Unknown Unknown Verified 08/07/24 12:38 Review of Systems Review of Systems: CONSTITUTIONAL: Denies malaise, chills, sweats, or fever. SKIN: Denies rash or itching, open skin, laceration, abrasion, redness, warmth, swelling. MUSCULOSKELETAL: Reports left foot pain NEUROLOGIC: Denies numbness, weakness All systems reviewed & are unremarkable except as noted in HPI and below PMFSH Past Medical History Medical History Calcaneal spur of right foot Chronic renal insufficiency, stage II (mild) Colon cancer screening (~2019) negative cologuard HLD (hyperlipidemia) Hypertension Hypothyroidism Surgical History Surgical History Hx of tonsillectomy Family History Family History Father Hypertension Grandparent Hypertension Mother Hypertension Sibling Hypertension Family history of elevated blood lipids Social History Social History Smoking status: Never smoker Second hand tobacco smoke exposure: No Alcohol intake: never Substance use: never Substance use type: does not use Lack of Transportation: No Lack of Food: Never True Current Housing: I Have Housing Concerned About Future Housing: No Difficulty Paying Gas/Electric Bills: No Difficulty Paying for Meds: No Currently Unemployed: No Education: High School Diploma/GED Difficulty w/ Childcare or Family Care: No Gender identity (if verbalized by the patient): Female Spiritual care concerns: No Agree to blood products: Yes Comments At time of signature, agree with nursing past medical, surgical, social and family history. There is no relevant family history pertinent to the presenting complaint Exam Narrative: GENERAL: Well-appearing, well-nourished, and in no acute distress. HEAD: Normocephalic EYES: PERRLA ENT: Nares clear. Mucous membranes moist. NECK: Supple. CHEST: No respiratory distress. Speaks in full sentences. HEART: Regular rate and rhythm. SKIN: Warm, dry, no visible rash. NEURO: Alert and oriented x3. PSYCH: Normal mood and affect Course Course Emergency Course: Patient is aware of
[2024-08-07 12:10] VITALS: BP 152/92; PULSE 73; RESP 16; TEMP 37.3; O2SAT 98
== END 2024-08-07 12:55 | disposition home or self-care (01) ==
PROVIDERS: Emergency Provider Nurse Practitioner; PCP Family Medicine
DX: M79.672 Pain in left foot (principal); I12.9 Hypertensive chronic kidney disease with stage 1 through stage 4 chronic kidney disease, or unspecified chronic kidney disease; N18.2 Chronic kidney disease, stage 2 (mild); E78.5 Hyperlipidemia, unspecified; E03.9 Hypothyroidism, unspecified
CPT/HCPCS: 99212; G0463

== ENCOUNTER 2024-08-30 10:38 | Emergency (ER) | payer OTHER, SELFPAY ==
[2024-08-30 10:49] VITALS: BP 149/87; PULSE 68; RESP 16; TEMP 36.9; O2SAT 99
[2024-08-30 10:51] VITALS: BP 149/87; PULSE 68; RESP 16; TEMP 36.9; O2SAT 99
--- NOTE | 2024-08-30 10:54 | ED.DIZZY ---
HPI - Dizziness General Chief Complaint: Dizziness Stated Complaint: dizzines Time Seen by Provider: 08/30/24 10:54 Source: patient Mode of arrival: ambulatory Limitations: no limitations History of Present Illness HPI Narrative: 63-year-old female presents with complaint dizziness. Noticed this morning when she woke up. Had to call into work but has since resolved. Needs a work note. Patient reports yesterday she mowed the lawn and also her allergies are bothering her. Thinks dizziness is from her allergies and possible dehydration. Knows that she needs to drink more water. No vision changes. Started allergy meds yesterday. All systems reviewed and negative except as noted above Related Data Home Medications Medication Instructions Recorded Confirmed cetirizine 10 mg tablet (Zyrtec) 10 mg PO DAILY 11/23/19 08/30/24 cholecalciferol (vitamin D3) 250 250 mcg PO DAILY 03/08/23 08/30/24 mcg (10,000 unit) capsule mecobalamin (vitamin B12) 500 mcg 500 mcg PO DIRECTED 03/08/23 08/30/24 chewable tablet albuterol sulfate 0.63 mg/3 mL 0.63 mg inhalation Q4-6H PRN 04/19/23 08/30/24 solution for nebulization Shortness Of Breath Or Wheezing amlodipine 2.5 mg tablet 2.5 mg PO DAILY 08/30/24 08/30/24 hydrochlorothiazide 12.5 mg tablet 12.5 mg PO DAILY 08/30/24 08/30/24 Allergies Allergy/AdvReac Type Severity Reaction Status Date / Time bee pollen Allergy Unknown Unknown Verified 08/30/24 11:16 chocolate flavor Allergy Unknown Unknown Verified 08/30/24 11:16 erythromycin base Allergy Unknown Unknown Verified 08/30/24 11:16 Penicillins Allergy Unknown Unknown Verified 08/30/24 11:16 pepper (genus Capsicum) Allergy Unknown Unknown Verified 08/30/24 11:16 tetracycline Allergy Unknown Unknown Verified 08/30/24 11:16 Review of Systems Review of Systems: CONSTITUTIONAL: Denies fever, chills, or sweats. EYES: Denies visual changes, redness, or discharge. ENT: reports rhinorrhea, congestion. Denies sore throat, or otalgia. CARDIOVASCULAR: Denies chest pain, palpitations, or edema. RESPIRATORY: Denies cough or dyspnea. GASTROINTESTINAL: Denies abdominal pain, nausea, vomiting, or diarrhea. GENITOURINARY: Denies dysuria or hematuria. SKIN: Denies rash or itching. MUSCULOSKELETAL: Denies back pain, joint pain, or myalgia. NEUROLOGIC: Denies headache, numbness, or weakness. reports dizziness that has resolved. PSYCHIATRIC: Denies anxiety or depression. All other systems reviewed are negative, except as documented in HPI. [facility] Past Medical History Medical History Calcaneal spur of right foot Chronic renal insufficiency, stage II (mild) Colon cancer screening (~2019) negative cologuard HLD (hyperlipidemia) Hypertension Hypothyroidism Surgical History Surgical History Hx of tonsillectomy Family History Family History Father Hypertension Grandparent Hypertension Mother Hypertension Sibling Hypertension Family history of elevated blood lipids Social History Social History Smoking status: Never smoker Second hand tobacco smoke exposure: No Alcohol intake: never Substance use: never Substance use type: does not use Lack of Transportation: No Lack of Food: Never True Current Housing: I Have Housing Concerned About Future Housing: No Difficulty Paying Gas/Electric Bills: No Difficulty Paying for Meds: No Currently Unemployed: No Education: High School Diploma/GED Difficulty w/ Childcare or Family Care: No Gender identity (if verbalized by the patient): Female Spiritual care concerns: No Agree to blood products: Yes Comments At time of signature, agree with nursing past medical, surgical, social and family history. There is no relevant family history
== END 2024-08-30 11:06 | disposition home or self-care (01) ==
PROVIDERS: Emergency Provider Nurse Practitioner Family; PCP Family Medicine
DX: J30.9 Allergic rhinitis, unspecified (principal); H65.01 Acute serous otitis media, right ear; R42 Dizziness and giddiness; E03.9 Hypothyroidism, unspecified; E78.5 Hyperlipidemia, unspecified; I12.9 Hypertensive chronic kidney disease with stage 1 through stage 4 chronic kidney disease, or unspecified chronic kidney disease; N18.2 Chronic kidney disease, stage 2 (mild); Z79.899 Other long term (current) drug therapy
CPT/HCPCS: 99213; G0463

== ENCOUNTER 2024-10-02 13:35 | Emergency (ER) | payer OTHER, SELFPAY ==
--- NOTE | 2024-10-02 13:39 | ED.GENADULT ---
HPI - General Adult General Chief complaint: Anxiety Stated complaint: work note not feeling well Time Seen by Provider: 10/02/24 13:45 Source: patient, RN notes reviewed and old records reviewed Mode of arrival: ambulatory Limitations: no limitations History of Present Illness HPI narrative: 63-year-old female presents to the [facility] requesting a work note. States she has had some increased stress and anxiety due to the year anniversary of a family member dying. Also that is the holidays. Denies any symptoms other than increased stress. Denies SI HI. Related Data Home Medications Medication Instructions Recorded Confirmed cetirizine 10 mg tablet (Zyrtec) 10 mg PO DAILY 11/23/19 10/02/24 cholecalciferol (vitamin D3) 250 250 mcg PO DAILY 03/08/23 10/02/24 mcg (10,000 unit) capsule mecobalamin (vitamin B12) 500 mcg 500 mcg PO DIRECTED 03/08/23 10/02/24 chewable tablet albuterol sulfate 0.63 mg/3 mL 0.63 mg inhalation Q4-6H PRN 04/19/23 10/02/24 solution for nebulization Shortness Of Breath Or Wheezing hydrochlorothiazide 12.5 mg tablet 12.5 mg PO DAILY 08/30/24 10/02/24 Allergies Allergy/AdvReac Type Severity Reaction Status Date / Time bee pollen Allergy Unknown Unknown Verified 10/02/24 13:40 chocolate flavor Allergy Unknown Unknown Verified 10/02/24 13:40 erythromycin base Allergy Unknown Unknown Verified 10/02/24 13:40 Penicillins Allergy Unknown Unknown Verified 10/02/24 13:40 pepper (genus Capsicum) Allergy Unknown Unknown Verified 10/02/24 13:40 tetracycline Allergy Unknown Unknown Verified 10/02/24 13:40 Review of Systems Review of Systems: All systems reviewed & are unremarkable except as noted in HPI and below Constitutional: Constitutional: Reports no additional constitutional complaints ENT: Reports system reviewed and no additional complaints, except as documented Cardiovascular: Cardiovascular: Reports no additional cardiovascular complaints, Denies chest pain and Denies dyspnea Respiratory: Respiratory: Reports no additional respiratory complaints, Denies chest congestion, Denies cough and Denies dyspnea Gastrointestinal: Gastrointestinal: Reports no additional gastrointestinal complaints, Denies abdominal pain, Denies nausea and Denies vomiting Musculoskeletal: Musculoskeletal: Reports no additional musculoskeletal complaints Integumentary/Breasts: Skin/Breast: Reports system reviewed and no additional complaints, except as docu Psychiatric: Psychiatric: Reports as per [facility] Past Medical History Medical History Calcaneal spur of right foot Chronic renal insufficiency, stage II (mild) Colon cancer screening (~2019) negative cologuard HLD (hyperlipidemia) Hypertension Hypothyroidism Surgical History Surgical History Hx of tonsillectomy Family History Family History Father Hypertension Grandparent Hypertension Mother Hypertension Sibling Hypertension Family history of elevated blood lipids Social History Social History Smoking status: Never smoker Second hand tobacco smoke exposure: No Alcohol intake: never Substance use: never Substance use type: does not use Lack of Transportation: No Lack of Food: Never True Current Housing: I Have Housing Concerned About Future Housing: No Difficulty Paying Gas/Electric Bills: No Difficulty Paying for Meds: No Currently Unemployed: No Education: High School Diploma/GED Difficulty w/ Childcare or Family Care: No Gender identity (if verbalized by the patient): Female Spiritual care concerns: No Agree to blood products: Yes Comments At the time of my signature, I reviewed and agree with the nursing past medical, surgical, social, and family history. There is no relevant family history pertinent to the patient complaint. Exam Const: General: cooperative, healthy appearing, comfortable, no acute distress, well developed, alert and well nourished Nutritional Appearance: well nourished Orientation/consciousness: patient oriented x3 Limitations: no limitations HENMT: Head: normal to inspection Ears: hearing grossly normal bilaterally and external ears normal Face/Nose/Sinus: Normal external nose present, normal facial exam and face symmetric Face and sinus: normal facial exam and face symmetric Eyes: General: appearance normal, both eyes and all related structures Alignment and Position: alignment normal Periorbital: periorbital findings normal Neck: Neck: normal visual inspection, full ROM, no lymphadenopathy and no meningeal signs Chest: Chest palpation & inspection: normal inspection of the chest Resp: Effort & Inspection: normal respiratory effort and able to speak in complete sentences Cardio: Rate: regular rate Skin: General skin exam: normal color and no rashes or lesions noted Lesions: no lesions Rashes: no rashes Wounds: no wounds Neuro: General: patient oriented x3, gait normal, tone normal, moves all extremities and no meningeal signs Cognition (Neuro): normal cognition Speech: normal speech Gait exam (Neuro): Normal gait present Extrem: General: normal to inspection, full ROM, capillary refill normal and normal gait Psych: Appearance: grossly normal and well kempt Mental Status: mental status grossly normal Speech and movement: Normal speech and movement present and Clear speech present Affect: normal affect Attitude: cooperative Course Course Level of Care: Express Care Visit Vital Signs Vital signs: Vital Signs Temperature 98.1 F 10/02/24 13:45 Pulse Rate 80 10/02/24 13:45 Respiratory Rate 16 10/02/24 13:45 Blood Pressure 163/96 H 10/02/24 13:45 Pulse Oximetry 98 10/02/24 13:45 Oxygen Delivery Room Air 10/02/24 13:45 Temperature 98.1 F 10/02/24 13:45 Pulse Rate 80 10/02/24 13:45 Respiratory Rate 16 10/02/24 13:45 Blood Pressure 163/96 H 10/02/24 13:45 Pulse Oximetry 98 10/02/24 13:45 Oxygen Delivery Room Air 10/02/24 13:45 Reviewed Medical Decision Making MDM Narrative Medical decision making narrative: Patient sitting comfortably in exam room. Nontoxic, vitals stable, except blood pressure mildly elevated. Patient in no acute distress Patient presents requesting a work note. Patient states that she had to leave work due to some stress and anxiety in her life. Patient has no complaints at this time. Will give work note, encourage patient to follow-up with primary care provider for further evaluation Discharge instructions reviewed with patient, as well as provided in writing per nursing staff. The instructions also include specific and strict return/GO TO THE ER as well as f/u information. All questions have been answered, and the patient deny any further questions with discharge and discharge plan. Some parts of this dictation were generated by voice recognition software and may contain typographical and/or grammatical inaccuracies. Differential Diagnosis Differential Diagnosis: Anxiety, stress, Medical Records Medical records reviewed: Yes I reviewed the external patient's medical records. Vital Signs Vital Signs: Vital Signs Temperature 98.1 F 10/02/24 13:45 Pulse Rate 80 10/02/24 13:45 Respiratory Rate 16 10/02/24 13:45 Blood Pressure 163/96 H 10/02/24 13:45 Pulse Oximetry 98 10/02/24 13:45 Oxygen Delivery Room Air 10/02/24 13:45 Temperature 98.1 F 10/02/24 13:45 Pulse Rate 80 10/02/24 13:45 Respiratory Rate 16 10/02/24 13:45 Blood Pressure 163/96 H 10/02/24 13:45 Pulse Oximetry 98 10/02/24 13:45 Oxygen Delivery Room Air 10/02/24 13:45 Reviewed Lab Data Lab results reviewed: Yes I reviewed the patient's lab results. Labs: Reviewed Critical Care Time Critical Care Time Critical Care Time: No Discharge Plan Discharge Clinical Impression: Anxiety Patient Disposition: Home, Self-Care Condition: Stable Instructions: Antibiotic Form, Anxiety (ED) Additional Instructions: Follow-up with your primary care provider Today your to blood pressure was 163/96. Is recommended you follow-up with your primary care provider to have a blood pressure recheck. Patient Language: Cook Islander Prescriptions: No Action hydrochlorothiazide 12.5 mg tablet 12.5 mg PO DAILY meclizine 25 mg tablet 25 mg PO Q6-8H PRN (Reason: dizziness) Qty: 30 0RF (DME) Space Chamber Spacer See Rx Instructions .ROUTE .MEDSUPPLY Qty: 1 0RF Rx Instructions: As directed cholecalciferol (vitamin D3) 250 mcg (10,000 unit) capsule 250 mcg PO DAILY mecobalamin (vitamin B12) 500 mcg tablet,chewable 500 mcg PO DIRECTED cetirizine [Zyrtec] 10 mg tablet 10 mg PO DAILY albuterol sulfate 0.63 mg/3 mL solution for nebulization 0.63 mg inhalation Q4-6H PRN (Reason: Shortness Of Breath Or Wheezing) buspirone 10 mg tablet 10 mg PO TID PRN (Reason: anxiety) Qty: 90 0RF albuterol sulfate 90 mcg/actuation HFA aerosol inhaler 1 inh inhalation Q4H PRN (Reason: shortness of breath or wheezing) Qty: 8.5 2RF famotidine 40 mg tablet See Rx Instructions .ROUTE .COMPLEX Qty: 90 3RF Dose Instruction: TAKE 1 TABLET BY MOUTH DAILY Rx Instructions: TAKE 1 TABLET BY MOUTH DAILY levothyroxine 112 mcg tablet 112 mcg PO DAILY Qty: 90 2RF simvastatin 40 mg tablet 40 mg PO DAILY Qty: 90 3RF amlodipine 2.5 mg tablet 2.5 mg PO DAILY Qty: 90 2RF lisinopril 40 mg tablet 40 mg PO DAILY Qty: 90 1RF meloxicam 15 mg tablet See Rx Instructions .ROUTE .COMPLEX Qty: 90 1RF Dose Instruction: TAKE 1 TABLET BY MOUTH DAILY Rx Instructions: TAKE 1 TABLET BY MOUTH DAILY Follow-up/Referrals: Heather Martinez MD [Primary Care Provider] - 1 Week (express care follow up) Stand Alone Forms: Work/School Release IP Time of Disposition: 13:55
[2024-10-02 13:45] VITALS: BP 163/96; PULSE 80; RESP 16; TEMP 36.7; O2SAT 98
== END 2024-10-02 14:11 | disposition home or self-care (01) ==
PROVIDERS: Emergency Provider Nurse Practitioner; PCP Family Medicine
DX: F41.9 Anxiety disorder, unspecified (principal); I12.9 Hypertensive chronic kidney disease with stage 1 through stage 4 chronic kidney disease, or unspecified chronic kidney disease; N18.2 Chronic kidney disease, stage 2 (mild); E78.5 Hyperlipidemia, unspecified; E03.9 Hypothyroidism, unspecified
CPT/HCPCS: 99211; G0463

== ENCOUNTER 2024-11-03 14:15 | Emergency (ER) | payer OTHER, SELFPAY ==
[2024-11-03 14:32] VITALS: BP 143/80; PULSE 108; RESP 16; TEMP 37.4; O2SAT 99
--- NOTE | 2024-11-03 14:59 | ED.NAVMDI ---
HPI - Nausea/Vomiting/Diarrhea General Chief complaint: Nausea/Vomiting/Diarrhea Stated complaint: Diarrhea/Weakness/Vomiting Time Seen by Provider: 11/03/24 14:45 Source: patient Mode of arrival: ambulatory Limitations: no limitations History of Present Illness HPI Narrative: Alize is a 63 year old female patient presenting to the clinic today with complaints of diarrhea, weakness, and vomiting tetanus since around o'clock last night. She reports she has vomited multiple times and had several diarrhea stools. Thinks she is dehydrated and having some muscle cramping but does not wish to go to the emergency room. She would like to get a prescription here for some Zofran and go home and try did complete an oral challenge. She denies any abdominal pain. No blood in her stool. Related Data Home Medications ?Medication ?Instructions ?Recorded ?Confirmed ?Last Taken ?Type cetirizine 10 mg tablet (Zyrtec) 10 mg PO DAILY 11/23/19 11/03/24 Unknown History cholecalciferol (vitamin D3) 250 250 mcg PO DAILY 03/08/23 11/03/24 Unknown History mcg (10,000 unit) capsule mecobalamin (vitamin B12) 500 mcg 500 mcg PO DIRECTED 03/08/23 11/03/24 Unknown History chewable tablet albuterol sulfate 0.63 mg/3 mL 0.63 mg inhalation Q4-6H PRN 04/19/23 11/03/24 Unknown History solution for nebulization Shortness Of Breath Or Wheezing hydrochlorothiazide 12.5 mg tablet 12.5 mg PO DAILY 08/30/24 11/03/24 Unknown History Allergies Allergy/AdvReac Type Severity Reaction Status Date / Time bee pollen Allergy Unknown Unknown Verified 11/03/24 14:27 chocolate flavor Allergy Unknown Unknown Verified 11/03/24 14:27 erythromycin base Allergy Unknown Unknown Verified 11/03/24 14:27 Penicillins Allergy Unknown Unknown Verified 11/03/24 14:27 pepper (genus Capsicum) Allergy Unknown Unknown Verified 11/03/24 14:27 tetracycline Allergy Unknown Unknown Verified 11/03/24 14:27 Review of Systems Review of Systems: Pertinent positives per HPI. Patient denies any fever, chills, rash, headache, visual changes, dizziness, cough, runny nose, sore throat, shortness of breath, chest pain, palpitations, constipation, abdominal pain, or any urinary issues. PMFSH Past Medical History Medical History Calcaneal spur of right foot Chronic renal insufficiency, stage II (mild) Colon cancer screening (~2019) negative cologuard HLD (hyperlipidemia) Hypertension Hypothyroidism Surgical History Surgical History Hx of tonsillectomy Family History Family History Father Hypertension Grandparent Hypertension Mother Hypertension Sibling Hypertension Family history of elevated blood lipids Social History Social History Smoking status: Never smoker Second hand tobacco smoke exposure: No Alcohol intake: never Substance use: never Substance use type: does not use Lack of Transportation: No Lack of Food: Never True Current Housing: I Have Housing Concerned About Future Housing: No Difficulty Paying Gas/Electric Bills: No Difficulty Paying for Meds: No Currently Unemployed: No Education: High School Diploma/GED Difficulty w/ Childcare or Family Care: No Gender identity (if verbalized by the patient): Female Spiritual care concerns: No Agree to blood products: Yes Comments At the time of my signature, I reviewed and agree with the nursing past medical, surgical, social, and family history. There is no relevant family history pertinent to the patient complaint. Exam Narrative: General: Well-developed, well nourished, acute ill-appearing Head: Normocephalic, atraumatic. Cardio: Regular rate and rhythm, s1 and s2 normal, no murmur appreciated. Resp: Clear to auscultation bilaterally, no rhonchi, rales, wheezing or rubs. Abdomen: Soft, pliable, bowel sounds present in all quadrants, non-tender to palpation, no organomegly, no CVAT tenderness. Course Course Emergency Course: Portions of this record may have been created with voice recognition software. Level of Care: Express Care Visit Vital Signs Vital signs: Vital Signs Temperature 37.4 C 11/03/24 14:32 Pulse Rate 108 H 11/03/24 14:32 Respiratory Rate 16 11/03/24 14:32 Blood Pressure 143/80 H 11/03/24 14:32 Pulse Oximetry 99 11/03/24 14:32 Oxygen Delivery Room Air 11/03/24 14:32 Temperature 37.4 C 11/03/24 14:32 Pulse Rate 108 H 11/03/24 14:32 Respiratory Rate 16 11/03/24 14:32 Blood Pressure 143/80 H 11/03/24 14:32 Pulse Oximetry 99 11/03/24 14:32 Oxygen Delivery Room Air 11/03/24 14:32 Vital signs reviewed MDM - Nausea/Vomiting/Diarrhea MDM Narrative Medical decision making narrative: At the time of visit patient is resting comfortably on the exam table. Patient appears to be nontoxic. Plan: Patient does not wish to go to the emergency room for further evaluation and IV fluids. She would like to go home and try a p.o. challenge and get some nausea medicine. She states the ER is too expensive and she cannot afford to go. She is requesting a work note. Supportive measures were discussed with the patient and they voiced understanding discharge instructions and agrees to treatment plan. Return precautions reviewed Differential Diagnosis Differential diagnosis: Likely traveler's diarrhea, food poisoning, gastroenteritis, clostridium difficile infection, drug-induced nausea and vomiting, dehydration and other (COVID and influenza) Discharge Plan Discharge Clinical Impression: Gastroenteritis Patient Disposition: Home, Self-Care Condition: Stable Instructions: Antibiotic Form, Gastroenteritis (ED) Additional Instructions: Take prescription medications only as prescribed-Zofran Increase fluids and stay well hydrated Tylenol/motrin for pain/fever Flonase and OTC antihistamines as directed Vicks vapor rub to open sinuses Sinus rinses for congestion Cepacol spray, cough drops, throat lozenges, warm tea with honey/lemon, gargle salt water to soothe throat BRAT diet for diarrhea Clear liquids x 24 hours then advance as tolerated for nausea/vomiting Go to the ED if you develop a worsening in your condition- high fever not controlled by Tylenol or Motrin, dehydration, weakness, lethargy, shortness of breath, or chest pain. Follow up with your PCP in 3-5 days if symptoms persist. Patient Language: Bahamian Prescriptions: New ondansetron 4 mg tablet,disintegrating 4 mg PO Q6H PRN (Reason: nausea and vomiting) 3 Days Qty: 12 0RF No Action hydrochlorothiazide 12.5 mg tablet 12.5 mg PO DAILY meclizine 25 mg tablet 25 mg PO Q6-8H PRN (Reason: dizziness) Qty: 30 0RF (DME) Space Chamber Spacer See Rx Instructions .ROUTE .MEDSUPPLY Qty: 1 0RF Rx Instructions: As directed cholecalciferol (vitamin D3) 250 mcg (10,000 unit) capsule 250 mcg PO DAILY mecobalamin (vitamin B12) 500 mcg tablet,chewable 500 mcg PO DIRECTED cetirizine [Zyrtec] 10 mg tablet 10 mg PO DAILY albuterol sulfate 0.63 mg/3 mL solution for nebulization 0.63 mg inhalation Q4-6H PRN (Reason: Shortness Of Breath Or Wheezing) buspirone 10 mg tablet 10 mg PO TID PRN (Reason: anxiety) Qty: 90 0RF albuterol sulfate 90 mcg/actuation HFA aerosol inhaler 1 inh inhalation Q4H PRN (Reason: shortness of breath or wheezing) Qty: 8.5 2RF famotidine 40 mg tablet See Rx Instructions .ROUTE .COMPLEX Qty: 90 3RF Dose Instruction: TAKE 1 TABLET BY MOUTH DAILY Rx Instructions: TAKE 1 TABLET BY MOUTH DAILY levothyroxine 112 mcg tablet 112 mcg PO DAILY Qty: 90 2RF simvastatin 40 mg tablet 40 mg PO DAILY Qty: 90 3RF amlodipine 2.5 mg tablet 2.5 mg PO DAILY Qty: 90 2RF lisinopril 40 mg tablet 40 mg PO DAILY Qty: 90 1RF meloxicam 15 mg tablet See Rx Instructions .ROUTE .COMPLEX Qty: 90 1RF Dose Instruction: TAKE 1 TABLET BY MOUTH DAILY Rx Instructions: TAKE 1 TABLET BY MOUTH DAILY Follow-up/Referrals: Heather Martinez MD [Primary Care Provider] - Stand Alone Forms: Work/School Release IP Time of Disposition: 15:03 Quality NIHSS Nursing Documentation ED NIHSS nursing documentation: reviewed/agree
== END 2024-11-03 15:11 | disposition home or self-care (01) ==
PROVIDERS: Emergency Provider Nurse Practitioner Family; PCP Family Medicine
DX: K52.9 Noninfective gastroenteritis and colitis, unspecified (principal); I12.9 Hypertensive chronic kidney disease with stage 1 through stage 4 chronic kidney disease, or unspecified chronic kidney disease; N18.2 Chronic kidney disease, stage 2 (mild); E78.5 Hyperlipidemia, unspecified; E03.9 Hypothyroidism, unspecified
CPT/HCPCS: 99213; G0463

== ENCOUNTER 2025-01-05 10:34 | Outpatient (CLI) | payer OTHER, SELFPAY | END 2025-01-05 10:35 | disposition home or self-care (01) | LOC: MICIMG 10:35 | PROVIDERS: PCP Family Medicine; Visit Provider Family Medicine | DX: Z12.31 Encounter for screening mammogram for malignant neoplasm of breast (principal) | CPT/HCPCS: 77063; 77067 ==

== ENCOUNTER 2025-01-08 11:15 | Emergency (ER) | payer OTHER, SELFPAY ==
[2025-01-08 11:27] VITALS: BP 132/77; PULSE 75; RESP 16; TEMP 36.7; O2SAT 97
--- NOTE | 2025-01-08 11:56 | ED.GENADULT ---
HPI - General Adult General Chief complaint: Upper Respiratory Infection Stated complaint: cough,diarrhea,chest congestion Source: patient, RN notes reviewed and old records reviewed Mode of arrival: ambulatory Limitations: no limitations History of Present Illness HPI narrative: 64-year-old female presents to the [facility] with complaints of cough and diarrhea that started on Wednesday. Reports dry cough. Has taken Mucinex. Patient also reports diarrhea on Wednesday and Wednesday, did increase her weight loss drug Ozempic on Wednesday. Reports that she also did [employer] Denies any pain. Denies fevers. Requesting a work note to return on Wednesday Onset (ago): day(s) (1) Related Data Home Medications ?Medication ?Instructions ?Recorded ?Confirmed ?Last Taken ?Type cetirizine 10 mg tablet (Zyrtec) 10 mg PO DAILY 11/23/19 11/03/24 Unknown History cholecalciferol (vitamin D3) 250 250 mcg PO DAILY 03/08/23 11/03/24 Unknown History mcg (10,000 unit) capsule mecobalamin (vitamin B12) 500 mcg 500 mcg PO DIRECTED 03/08/23 11/03/24 Unknown History chewable tablet oxybutynin chloride 15 mg mg PO 01/08/25 Unknown History tablet,extended release 24 hr tirzepatide (weight loss) 2.5 mg subcut 01/08/25 Unknown History mg/0.5 mL subcutaneous pen injector (Zepbound) Allergies Allergy/AdvReac Type Severity Reaction Status Date / Time bee pollen Allergy Unknown Unknown Verified 01/08/25 11:26 chocolate flavor Allergy Unknown Unknown Verified 01/08/25 11:26 erythromycin base Allergy Unknown Unknown Verified 01/08/25 11:26 Penicillins Allergy Unknown Unknown Verified 01/08/25 11:26 pepper (genus Capsicum) Allergy Unknown Unknown Verified 01/08/25 11:26 tetracycline Allergy Unknown Unknown Verified 01/08/25 11:26 Review of Systems Review of Systems: All systems reviewed & are unremarkable except as noted in HPI and below Constitutional: Constitutional: Reports no additional constitutional complaints ENT: Reports system reviewed and no additional complaints, except as documented Cardiovascular: Cardiovascular: Reports no additional cardiovascular complaints, Denies chest pain and Denies dyspnea Respiratory: Respiratory: Reports as per HPI, Denies chest congestion, Reports cough and Denies dyspnea Gastrointestinal: Gastrointestinal: Reports as per HPI, Reports diarrhea, Denies nausea and Denies vomiting Musculoskeletal: Musculoskeletal: Reports no additional musculoskeletal complaints Integumentary/Breasts: Skin/Breast: Reports system reviewed and no additional complaints, except as docu PMFSH Past Medical History Medical History Calcaneal spur of right foot Chronic renal insufficiency, stage II (mild) Colon cancer screening (~2019) negative cologuard HLD (hyperlipidemia) Hypothyroidism Hypertension Surgical History Surgical History Hx of tonsillectomy Family History Family History Father Hypertension Grandparent Hypertension Mother Hypertension Sibling Hypertension Family history of elevated blood lipids Social History Social History Smoking status: Never smoker Second hand tobacco smoke exposure: No Alcohol intake: never Substance use: never Substance use type: does not use Lack of Transportation: No Lack of Food: Never True Current Housing: I Have Housing Concerned About Future Housing: No Difficulty Paying Gas/Electric Bills: No Difficulty Paying for Meds: No Currently Unemployed: No Education: High School Diploma/GED Difficulty w/ Childcare or Family Care: No Gender identity (if verbalized by the patient): Female Spiritual care concerns: No Agree to blood products: Yes Comments At the time of my signature, I reviewed and agree with the nursing past medical, surgical, social, and family history. There is no relevant family history pertinent to the patient complaint. Exam Const: General: cooperative, healthy appearing, comfortable, no acute distress, well developed, alert and well nourished Nutritional Appearance: well nourished and obese Orientation/consciousness: patient oriented x3 Limitations: no limitations HENMT: Head: normal to inspection Eyes: General: appearance normal, both eyes and all related structures Alignment and Position: alignment normal Neck: Neck: normal visual inspection, full ROM, no lymphadenopathy and no meningeal signs Chest: Chest palpation & inspection: normal inspection of the chest Resp: Effort & Inspection: normal respiratory effort and able to speak in complete sentences Auscultation: clear to auscultation bilaterally, no crackles, no rales, no rhonchi and no wheezes Cardio: Rate: regular rate GI: GI Palp: No abdominal tenderness and Yes Soft to palpation : General: Yes no CVA tenderness Skin: General skin exam: normal color and no rashes or lesions noted Neuro: General: patient oriented x3, gait normal, moves all extremities and no meningeal signs Cognition (Neuro): normal cognition Speech: normal speech Gait exam (Neuro): Normal gait present Extrem: General: normal to inspection, full ROM, capillary refill normal and normal gait Psych: Appearance: grossly normal and well kempt Mental Status: mental status grossly normal Speech and movement: Normal speech and movement present and Clear speech present Affect: normal affect Attitude: cooperative Course Course Level of Care: Express Care Visit Vital Signs Vital signs: Vital Signs Temperature 98.0 F 01/08/25 11:27 Pulse Rate 75 01/08/25 11:27 Respiratory Rate 16 01/08/25 11:27 Blood Pressure 132/77 01/08/25 11:27 Pulse Oximetry 97 01/08/25 11:27 Oxygen Delivery Room Air 01/08/25 11:27 Temperature 98.0 F 01/08/25 11:27 Pulse Rate 75 01/08/25 11:27 Respiratory Rate 16 01/08/25 11:27 Blood Pressure 132/77 01/08/25 11:27 Pulse Oximetry 97 01/08/25 11:27 Oxygen Delivery Room Air 01/08/25 11:27 Reviewed Medical Decision Making MDM Narrative Medical decision making narrative: Patient sitting comfortably in exam room. Nontoxic, vitals stable. Patient in no acute distress Patient presents for cough and diarrhea Patient on Ozempic, had an increased dose on Wednesday, symptoms started day after. Patient continues to eat fast food as well. Educated patient that she should modify her diet. Patient is appropriate for outpatient treatment and follow-up Discharge instructions reviewed with patient, as well as provided in writing per nursing staff. The instructions also include specific and strict return/GO TO THE ER as well as f/u information. All questions have been answered, and the patient deny any further questions with discharge and discharge plan. Some parts of this dictation were generated by voice recognition software and may contain typographical and/or grammatical inaccuracies. Differential Diagnosis Differential Diagnosis: Drug side effect acute diarrhea viral infection Medical Records Medical records reviewed: Yes I reviewed the external patient's medical records. Vital Signs Vital Signs: Vital Signs Temperature 98.0 F 01/08/25 11:27 Pulse Rate 75 01/08/25 11:27 Respiratory Rate 16 01/08/25 11:27 Blood Pressure 132/77 01/08/25 11:27 Pulse Oximetry 97 01/08/25 11:27 Oxygen Delivery Room Air 01/08/25 11:27 Temperature 98.0 F 01/08/25 11:27 Pulse Rate 75 01/08/25 11:27 Respiratory Rate 16 01/08/25 11:27 Blood Pressure 132/77 01/08/25 11:27 Pulse Oximetry 97 01/08/25 11:27 Oxygen Delivery Room Air 01/08/25 11:27 Reviewed Lab Data Lab results reviewed: Yes I reviewed the patient's lab results. Labs: Lab Results 01/08/25 Range/Units 12:11 POC Influenza A Ag Negative (Negative) POC Influenza B Ag Negative (Negative) Reviewed Critical Care Time Critical Care Time Critical Care Time: No Discharge Plan Discharge Clinical Impression: Cough, Diarrhea Patient Disposition: Home, Self-Care Condition: Stable Instructions: Antibiotic Form, Acute Diarrhea (ED), Acute Cough (ED) Additional Instructions: Take [id number] cough medicine as needed Modify your diet especially when you use your weight loss medication. It is very common to have nausea, abdominal cramping and diarrhea 2-3 days after doing your shot. Follow-up with your primary care provider this week New or worsening symptoms go directly to the emergency room Patient Language: Burundian Prescriptions: No Action oxybutynin chloride 15 mg tablet extended release 24hr PO Zepbound 2.5 mg/0.5 mL pen injector SUBCUT (DME) Space Chamber Spacer See Rx Instructions .ROUTE .MEDSUPPLY Qty: 1 0RF Rx Instructions: As directed cholecalciferol (vitamin D3) 250 mcg (10,000 unit) capsule 250 mcg PO DAILY mecobalamin (vitamin B12) 500 mcg tablet,chewable 500 mcg PO DIRECTED cetirizine [Zyrtec] 10 mg tablet 10 mg PO DAILY albuterol sulfate 90 mcg/actuation HFA aerosol inhaler 1 inh inhalation Q4H PRN (Reason: shortness of breath or wheezing) Qty: 8.5 2RF levothyroxine 112 mcg tablet 112 mcg PO DAILY Qty: 90 2RF simvastatin 40 mg tablet 40 mg PO DAILY Qty: 90 3RF amlodipine 2.5 mg tablet 2.5 mg PO DAILY Qty: 90 2RF lisinopril 40 mg tablet 40 mg PO DAILY Qty: 90 1RF meloxicam 15 mg tablet See Rx Instructions .ROUTE .COMPLEX Qty: 90 1RF Dose Instruction: TAKE 1 TABLET BY MOUTH DAILY Rx Instructions: TAKE 1 TABLET BY MOUTH DAILY hydrochlorothiazide 12.5 mg tablet 12.5 mg PO DAILY Qty: 90 1RF Follow-up/Referrals: Heather Martinez MD [Primary Care Provider] - 2 Weeks ([facility] follow up ) Stand Alone Forms: Work/School Release IP Time of Disposition: 12:19
[2025-01-08 12:14] LABS: EDINFLUASCREEN Negative (Negative); EDINFLUBSCREEN Negative (Negative)
== END 2025-01-08 12:25 | disposition home or self-care (01) ==
PROVIDERS: Emergency Provider Nurse Practitioner; PCP Family Medicine
DX: R05.9 Cough, unspecified (principal); R19.7 Diarrhea, unspecified; E78.5 Hyperlipidemia, unspecified; E03.9 Hypothyroidism, unspecified; I10 Essential (primary) hypertension
CPT/HCPCS: 87804; 99212; G0463

== ENCOUNTER 2025-03-02 11:43 | Emergency (ER) | payer OTHER, SELFPAY ==
[2025-03-02 11:58] VITALS: BP 116/70; PULSE 64; RESP 19; TEMP 36.8; O2SAT 97
--- NOTE | 2025-03-02 12:05 | ED_ITS ---
HPI - General Adult General Chief complaint: Unspecified Stated complaint: work note Time Seen by Provider: 03/02/25 12:05 Source: patient Mode of arrival: ambulatory Limitations: no limitations History of Present Illness HPI narrative: 64-year-old female presents to [facility] for a work note. Patient took off work today for a doctor's appointment. Doctor's appointment canceled on her and she needs a work note ,which she would have gotten from that doctor's appointment, to return to work on Wednesday. Patient has no complaints today. All systems reviewed and negative except as noted above. Related Data Home Medications ?Medication ?Instructions ?Recorded ?Confirmed ?Last Taken ?Type cetirizine 10 mg tablet (Zyrtec) 10 mg PO DAILY 11/23/19 11/03/24 Unknown History cholecalciferol (vitamin D3) 250 250 mcg PO DAILY 03/08/23 11/03/24 Unknown History mcg (10,000 unit) capsule mecobalamin (vitamin B12) 500 mcg 500 mcg PO DIRECTED 03/08/23 11/03/24 Unknown History chewable tablet oxybutynin chloride 15 mg mg PO 01/08/25 Unknown History tablet,extended release 24 hr Allergies Allergy/AdvReac Type Severity Reaction Status Date / Time bee pollen Allergy Unknown Unknown Verified 03/02/25 11:46 chocolate flavor Allergy Unknown Unknown Verified 03/02/25 11:46 erythromycin base Allergy Unknown Unknown Verified 03/02/25 11:46 Penicillins Allergy Unknown Unknown Verified 03/02/25 11:46 pepper (genus Capsicum) Allergy Unknown Unknown Verified 03/02/25 11:46 tetracycline Allergy Unknown Unknown Verified 03/02/25 11:46 Review of Systems Review of Systems: CONSTITUTIONAL: Denies fever, chills, or sweats. EYES: Denies visual changes, redness, or discharge. ENT: Denies rhinorrhea, congestion, sore throat, or otalgia. CARDIOVASCULAR: Denies chest pain, palpitations, or edema. RESPIRATORY: Denies cough or dyspnea. GASTROINTESTINAL: Denies abdominal pain, nausea, vomiting, or diarrhea. GENITOURINARY: Denies dysuria or hematuria. SKIN: Denies rash or itching. MUSCULOSKELETAL: Denies back pain, joint pain, or myalgia. NEUROLOGIC: Denies headache, numbness, or weakness. PSYCHIATRIC: Denies anxiety or depression. All other systems reviewed are negative, except as documented in HPI. COUNTS INCLUDE 234 BEDS AT THE [facility] Past Medical History Medical History Calcaneal spur of right foot Chronic renal insufficiency, stage II (mild) Colon cancer screening (~2019) negative cologuard HLD (hyperlipidemia) Hypothyroidism Hypertension Surgical History Surgical History Hx of tonsillectomy Family History Family History Father Hypertension Grandparent Hypertension Mother Hypertension Sibling Hypertension Family history of elevated blood lipids Social History Social History Smoking status: Never smoker Second hand tobacco smoke exposure: No Alcohol intake: never Substance use: never Substance use type: does not use Lack of Transportation: No Lack of Food: Never True Current Housing: I Have Housing Concerned About Future Housing: No Difficulty Paying Gas/Electric Bills: No Difficulty Paying for Meds: No Currently Unemployed: No Education: High School Diploma/GED Difficulty w/ Childcare or Family Care: No Gender identity (if verbalized by the patient): Female Spiritual care concerns: No Agree to blood products: Yes Comments At time of signature, agree with nursing past medical, surgical, social and family history. There is no relevant family history pertinent to the presenting complaint. Exam Narrative: GENERAL: This is a well-nourished, well-developed patient, in no apparent distress. HEAD: normocephalic, atraumatic. EYES: PERRL. Sclera clear/white. Vision is grossly intact. EARS: External ears normal NOSE: External nose normal NECK: Neck supple, non-tender without lymphadenopathy, masses or thyromegaly. CARDIOVASCULAR: Regular rate and rhythm without murmurs, gallops, or rubs. RESPIRATORY: Clear to auscultation. Breath sounds equal bilaterally. No wheezes, rales, or rhonchi. SKIN: warm, Dry, intact with no suspicious lesions or rash, good texture and turgor. NEURO: awake, alert, and oriented to person, place and time. There were no obvious focal neurologic abnormalities. EXTREMITIES: No joint tenderness, effusion, or edema noted. Course Course Level of Care: Express Care Visit Vital Signs Vital signs: Vital Signs Temperature 36.8 C 03/02/25 11:58 Pulse Rate 64 03/02/25 11:58 Respiratory Rate 19 03/02/25 11:58 Blood Pressure 116/70 03/02/25 11:58 Pulse Oximetry 97 03/02/25 11:58 Oxygen Delivery Room Air 03/02/25 11:58 Temperature 36.8 C 03/02/25 11:58 Pulse Rate 64 03/02/25 11:58 Respiratory Rate 19 03/02/25 11:58 Blood Pressure 116/70 03/02/25 11:58 Pulse Oximetry 97 03/02/25 11:58 Oxygen Delivery Room Air 03/02/25 11:58 Reviewed Medical Decision Making MDM Narrative Medical decision making narrative: patient is well-appearing, nontoxic. No complaints today. Patient is here for a work excuse. Please be advised this is a medical document. It is intended for [id number] communication. It is written in medical language and may contain unfamiliar abbreviations or verbiage. Medical documents are intended to carry relevant information, facts as evident, and the clinical opinion of the practitioner at the time of the encounter. This report may have been done utilizing a voice recognition system. Attempts have been made to correct errors. However, there may be uncorrected grammatical, spelling, and recognition errors present. The file time of this note does not necessarily represent the time of service. Vital Signs Vital Signs: Vital Signs Temperature 36.8 C 03/02/25 11:58 Pulse Rate 64 03/02/25 11:58 Respiratory Rate 19 03/02/25 11:58 Blood Pressure 116/70 03/02/25 11:58 Pulse Oximetry 97 03/02/25 11:58 Oxygen Delivery Room Air 03/02/25 11:58 Temperature 36.8 C 03/02/25 11:58 Pulse Rate 64 03/02/25 11:58 Respiratory Rate 19 03/02/25 11:58 Blood Pressure 116/70 03/02/25 11:58 Pulse Oximetry 97 03/02/25 11:58 Oxygen Delivery Room Air 03/02/25 11:58 Discharge Plan Discharge Clinical Impression: Encounter to obtain excuse from work Patient Disposition: Home Condition: Stable Instructions: General Patient Instructions Patient Language: Dutch Prescriptions: No Action oxybutynin chloride 15 mg tablet extended release 24hr PO (DME) Space Chamber Spacer See Rx Instructions .ROUTE .MEDSUPPLY Qty: 1 0RF Rx Instructions: As directed cholecalciferol (vitamin D3) 250 mcg (10,000 unit) capsule 250 mcg PO DAILY mecobalamin (vitamin B12) 500 mcg tablet,chewable 500 mcg PO DIRECTED cetirizine [Zyrtec] 10 mg tablet 10 mg PO DAILY levothyroxine 112 mcg tablet 112 mcg PO DAILY Qty: 90 2RF simvastatin 40 mg tablet 40 mg PO DAILY Qty: 90 3RF amlodipine 2.5 mg tablet 2.5 mg PO DAILY Qty: 90 2RF lisinopril 40 mg tablet 40 mg PO DAILY Qty: 90 1RF meloxicam 15 mg tablet See Rx Instructions .ROUTE .COMPLEX Qty: 90 1RF Dose Instruction: TAKE 1 TABLET BY MOUTH DAILY Rx Instructions: TAKE 1 TABLET BY MOUTH DAILY hydrochlorothiazide 12.5 mg tablet 12.5 mg PO DAILY Qty: 90 1RF pantoprazole 40 mg tablet,delayed release (DR/EC) 40 mg PO QAM Qty: 90 0RF Zepbound 2.5 mg/0.5 mL pen injector 2.5 mg subcut WEEKLY Qty: 2 0RF Rx Instructions: for 4 weeks Follow-up/Referrals: Heather Martinez MD [Primary Care Provider] - Stand Alone Forms: Work/School Release IP Time of Disposition: 12:13
== END 2025-03-02 12:20 | disposition home or self-care (01) ==
PROVIDERS: Emergency Provider Nurse Practitioner Family; PCP Family Medicine
DX: Z02.79 Encounter for issue of other medical certificate (principal); I12.9 Hypertensive chronic kidney disease with stage 1 through stage 4 chronic kidney disease, or unspecified chronic kidney disease; N18.2 Chronic kidney disease, stage 2 (mild); E03.9 Hypothyroidism, unspecified; E78.5 Hyperlipidemia, unspecified
CPT/HCPCS: 99211; G0463

== ENCOUNTER 2025-07-02 13:48 | Emergency (ER) | payer OTHER, SELFPAY ==
[2025-07-02 13:57] VITALS: BP 123/107; PULSE 70; RESP 18; TEMP 36.2; O2SAT 100
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
[2025-07-02 14:24] VITALS: BP 108/64
== END 2025-07-02 14:24 | disposition home or self-care (01) ==
PROVIDERS: Emergency Provider Nurse Practitioner Family; PCP Family Medicine
DX: R19.7 Diarrhea, unspecified (principal); I12.9 Hypertensive chronic kidney disease with stage 1 through stage 4 chronic kidney disease, or unspecified chronic kidney disease; N18.2 Chronic kidney disease, stage 2 (mild); E03.9 Hypothyroidism, unspecified; E78.5 Hyperlipidemia, unspecified
CPT/HCPCS: 99211; G0463

== ENCOUNTER 2025-07-03 11:02 | Outpatient (CLI) | payer OTHER, SELFPAY ==
--- NOTE | ~2025-07-03 | XR_ITS ---
XR clavicle LT 07/03/2025 11:24 Indication: Left shoulder pain Procedure: 2 views left clavicle Comparison: 09/25/2023 Findings: No fracture or traumatic malalignment. Acromioclavicular joint and anatomic alignment. No focal soft tissue abnormality. No foreign bodies. Impression: 1: No acute bone or joint abnormality. Reviewed, dictated and finalized at location O. Impression: 1: No acute bone or joint abnormality.
== END 2025-07-03 11:03 | disposition home or self-care (01) ==
PROVIDERS: PCP Family Medicine; Visit Provider Family Medicine
DX: M89.8X1 Other specified disorders of bone, shoulder (principal)
CPT/HCPCS: 73000

== ENCOUNTER 2025-11-06 08:35 | Emergency (ER) | payer OTHER, SELFPAY ==
[2025-11-06 09:04] VITALS: BP 119/65; PULSE 69; RESP 18; TEMP 35.9; O2SAT 100
--- NOTE | 2025-11-06 09:09 | ED.URI ---
HPI - URI/Sore Throat General Chief Complaint: Upper Respiratory Infection Stated Complaint: Sore Throat Time Seen by Provider: 11/06/25 09:09 Source: patient Mode of arrival: ambulatory Limitations: no limitations History of Present Illness HPI Narrative: Alize is a 64-year-old female patient presenting to the clinic today with complaints of sore throat nasal congestion x3 days. She denies any known fevers, chills, body aches. Has done warm tea with honey and lemon to help soothe her throat. Denies any chest pain or shortness of breath. Works at the [employer] and they have been without heat in their building for about 2 weeks. Related Data Home Medications ?Medication ?Instructions ?Recorded ?Confirmed ?Last Taken ?Type cetirizine 10 mg tablet (Zyrtec) 10 mg PO DAILY 11/23/19 09/17/25 Unknown History cholecalciferol (vitamin D3) 250 250 mcg PO DAILY 03/08/23 09/17/25 Unknown History mcg (10,000 unit) capsule oxybutynin chloride 15 mg mg PO 01/08/25 09/17/25 Unknown History tablet,extended release 24 hr Allergies Allergy/AdvReac Type Severity Reaction Status Date / Time bee pollen Allergy Unknown Unknown Verified 11/06/25 09:23 chocolate flavor Allergy Unknown Unknown Verified 11/06/25 09:23 erythromycin base Allergy Unknown Unknown Verified 11/06/25 09:23 Penicillins Allergy Unknown Unknown Verified 11/06/25 09:23 pepper (genus Capsicum) Allergy Unknown Unknown Verified 11/06/25 09:23 tetracycline Allergy Unknown Unknown Verified 09/17/25 13:53 Review of Systems Review of Systems: Pertinent positives per HPI. Patient denies any fever, chills, rash, headache, visual changes, dizziness, cough, shortness of breath, chest pain, palpitations, nausea, vomiting, diarrhea, constipation, abdominal pain, or any urinary issues. [facility] Past Medical History Medical History Calcaneal spur of right foot Chronic renal insufficiency, stage II (mild) Colon cancer screening (~2019) negative cologuard HLD (hyperlipidemia) Hypothyroidism Hypertension Surgical History Surgical History Hx of tonsillectomy Family History Family History Father Hypertension Grandparent Hypertension Mother Hypertension Sibling Hypertension Family history of elevated blood lipids Social History Social History Smoking status: Never smoker Second hand tobacco smoke exposure: No Alcohol intake: never Substance use: never Substance use type: does not use Lack of Transportation: No Lack of Food: Never True Current Housing: I Have Housing Concerned About Future Housing: No Difficulty Paying Gas/Electric Bills: No Difficulty Paying for Meds: No Currently Unemployed: No Education: High School Diploma/GED Difficulty w/ Childcare or Family Care: No Gender identity (if verbalized by the patient): Female Spiritual care concerns: No Agree to blood products: Yes Comments At the time of my signature, I reviewed and agree with the nursing past medical, surgical, social, and family history. There is no relevant family history pertinent to the patient complaint. Exam Narrative: General: Well-developed, well nourished, in no apparent distress Head: Normocephalic, atraumatic Eyes: Pupils equally round and reactive to light bilaterally, EOM intact, sclera and conjunctive clear, no discharge, lids normal Ears: TMs intact and clear, ear canals clear, no drainage, grossly hearing normal. Nose: Nares patent, clear nasal discharge, mild inflammation, no sinus tenderness. Mouth: Oral pharynx red without lesions or masses, good dentition, MMM. Postnasal drip Neck: Supple, trachea midline, no enlargement of anterior or posterior cervical nodes, no thyroid masses or goiter palpable. Cardio: Regular rate and rhythm, s1 and s2 normal, no murmur appreciated. Resp: Clear to auscultation bilaterally, no rhonchi, rales, wheezing or rubs Course Course Level of Care: Express Care Visit Vital Signs Vital signs: Vital Signs Temperature 35.9 C L 11/06/25 09:04 Pulse Rate 69 11/06/25 09:04 Respiratory Rate 18 11/06/25 09:04 Blood Pressure 119/65 11/06/25 09:04 Pulse Oximetry 100 11/06/25 09:04 Oxygen Delivery Room Air 11/06/25 09:04 Temperature 35.9 C L 11/06/25 09:04 Pulse Rate 69 11/06/25 09:04 Respiratory Rate 18 11/06/25 09:04 Blood Pressure 119/65 11/06/25 09:04 Pulse Oximetry 100 11/06/25 09:04 Oxygen Delivery Room Air 11/06/25 09:04 [facility] MDM Narrative Medical decision making narrative: At the time of visit patient is resting comfortably on the exam table. Patient appears to be nontoxic. Complaints of sore throat nasal congestion x3 days. She denies any known fevers, chills, body aches. Has done warm tea with honey and lemon to help soothe her throat. Denies any chest pain or shortness of breath. Works at the [employer] and they have been without heat in their building for about 2 weeks. On exam patient has mild TMs intact and clear, clear nasal drainage, mild anterior turbinate inflammation, oral pharynx red with postnasal drip, mild cervical lymphadenopathy, lung sounds are clear, heart rates regular rate and rhythm, Strep test was ordered. Labs: Strep test was positive in the clinic today. Plan: Patient has strep pharyngitis. Prescription for azithromycin was sent to the pharmacy as patient has allergies to amoxicillin. Patient also has allergies to erythromycin but she has taken azithromycin in the past without reaction. Work note was given. Supportive measures were discussed with the patient and they voiced understanding discharge instructions and agrees to treatment plan. Return precautions reviewed Differential Diagnosis Differential Diagnosis: Differential diagnostic considerations for upper respiratory infection include upper respiratory infection, croup, otitis media, sinusitis, viral infection, bronchitis, influenza, pharyngitis, strep, uvulitis. Lab Data Labs: Lab Results 11/06/25 Range/Units 09:10 POC Grp A Strep Screen Positive (Negative) Discharge Plan Discharge Clinical Impression: Acute streptococcal pharyngitis Patient Disposition: Home Condition: Stable Instructions: Antibiotic Form, Strep Throat (ED) Additional Instructions: Strep test was positive in the clinic today. Change your toothbrush in 24 hours after initiation of the antibiotics Take prescription medications only as prescribed-azithromycin Increase fluids and stay well hydrated May take Tylenol or motrin as directed on bottle for pain/fever May use Flonase 1 spray in each nare daily May take OTC antihistamines such as Zyrtec or Claritin daily as directed on bottle May apply Vicks vapor rub to chest to open sinuses Sinus rinses for congestion Cepacol spray, cough drops, throat lozenges, warm tea with honey/lemon, gargle salt water to soothe throat BRAT diet for diarrhea Clear liquids x 24 hours then advance as tolerated for nausea/vomiting Go to the ED if you develop a worsening in your condition- high fever not controlled by Tylenol or Motrin, dehydration, weakness, lethargy, shortness of breath, or chest pain. Follow up with your PCP in 3-5 days if symptoms persist. Patient Language: Paraguayan Prescriptions: New azithromycin 250 mg tablet See Rx Instructions .ROUTE .COMPLEX Qty: 6 0RF Rx Instructions: For 250 mg dose pack: take 500 mg today (day 1), then 250 mg for 4 days (days 2-5) No Action oxybutynin chloride 15 mg tablet extended release 24hr PO (DME) Space Chamber Spacer See Rx Instructions .ROUTE .MEDSUPPLY Qty: 1 0RF Rx Instructions: As directed cholecalciferol (vitamin D3) 250 mcg (10,000 unit) capsule 250 mcg PO DAILY cetirizine [Zyrtec] 10 mg tablet 10 mg PO DAILY simvastatin 20 mg tablet 20 mg PO DAILY Qty: 90 1RF pantoprazole 40 mg tablet,delayed release (DR/EC) 40 mg PO QAM Qty: 90 3RF lisinopril 40 mg tablet 40 mg PO DAILY Qty: 90 1RF levothyroxine 112 mcg tablet 112 mcg PO DAILY Qty: 90 2RF Rx Instructions: Take one tablet every day except Wednesday amlodipine 2.5 mg tablet 2.5 mg PO DAILY Qty: 90 2RF hydrochlorothiazide 12.5 mg tablet 6.25 mg PO DAILY Qty: 90 1RF buspirone 10 mg tablet 10 mg PO TID PRN (Reason: stress) Qty: 90 0RF Follow-up/Referrals: Coretta Zee PA-C [Primary Care Provider, Family Practice] Stand Alone Forms: Work/School Release IP Time of Disposition: 09:20 Quality NIHSS Nursing Documentation ED NIHSS nursing documentation: reviewed/agree
[2025-11-06 09:24] LABS: EDSTREPNEGPOS1 Positive (Negative)
== END 2025-11-06 09:30 | disposition home or self-care (01) ==
PROVIDERS: Emergency Provider Nurse Practitioner Family; PCP Student in an Organized Health Care Education/Training Program
DX: J02.0 Streptococcal pharyngitis (principal); N28.9 Disorder of kidney and ureter, unspecified; E78.5 Hyperlipidemia, unspecified; E03.9 Hypothyroidism, unspecified; I10 Essential (primary) hypertension
CPT/HCPCS: 87880; 99213; G0463